=== PATIENT | female | born 1960 | race Caucasian/White ===

== ENCOUNTER 2021-04-04 15:10 | Outpatient (CLI) | payer OTHER, SELFPAY ==
--- NOTE | 2021-04-04 15:17 | MM_ITS ---
WS: [id number] BILATERAL DIGITAL SCREENING MAMMOGRAPHY WITH CAD CLINICAL INFORMATION: SCREENING HISTORY: Screening mammogram. No current complaints. COMPARISON: April 07, 2019 TECHNIQUE: Bilateral CC and MLO views. FINDINGS: Scattered fibroglandular densities bilaterally. No suspicious focal mass, asymmetry, calcifications, or architectural distortion. No evidence of malignancy. MM/[place] [id number] IMPRESSION: BI-RADS: 1-Negative FOLLOW UP: 1 Year Follow-up Recommend return to annual screening mammography.
== END 2021-04-04 15:11 | disposition home or self-care (01) ==
PROVIDERS: PCP Family Medicine; Visit Provider Family Medicine
DX: Z12.39 Encounter for other screening for malignant neoplasm of breast (principal)
CPT/HCPCS: 77067

== ENCOUNTER → 2021-10-24 15:27 | Outpatient (BNVA) | payer OTHER, SELFPAY | PROVIDERS: PCP Family Medicine; Referring Provider Family Medicine; Visit Provider Specialist | DX: M19.011 Primary osteoarthritis, right shoulder (principal); M25.511 Pain in right shoulder | CPT/HCPCS: 73030 ==

== ENCOUNTER 2022-02-01 09:16 | Outpatient (CLI) | payer OTHER, SELFPAY ==
--- NOTE | 2022-02-01 09:25 | MR_ITS ---
WS: [id number] MRI RIGHT SHOULDER NONCONTRAST TECHNIQUE: Sagittal T2, coronal T1, T2 and proton density imaging. Axial gradient PDE imaging. CLINICAL INFORMATION: R SHOULDER PAIN/TEAR OF ROTATOR CUFF COMPARISON: Radiograph October 24, 2021 FINDINGS: Moderate degenerative arthritis at the AC joint with edema. Marked narrowing of the subacromial space . Acromion abuts the humeral head. Subchondral cystic degenerative change involving the acromion and humeral head. Subchondral cystic change involving the glenoid. Mild edema at the AC joint. Complete t ear of the supraspinatus with retraction to the glenohumeral joint. Normal infraspinatus. Normal dru s minor. Subscapularis is intact. Biceps tendon somewhat diminutive but appears intact within the bicipital groove. Intrasubstance high -grade tear involving the intra-articular biceps tendon with T2 signal abnormality. Chronic degenerative fraying of the glenoid labrum. Advanced narrowing at the glenohumeral articulati on with hypertrophic changes. MR/MR shoulder RT wo con* [id number] IMPRESSION: 1. Advanced degenerative arthritis AC joint with edema and complete loss of th e subacromial space. 2. High-grade complete tear of the supraspinatus with retraction to the level of glenohumeral joint. 3. Rotator cuff is otherwise intact. 4. Calcific tendinitis involving the distal subscapularis tendon. 5. Tiny biceps tendon within the bicipital groove appears intact. High-grade i ntrasubstance biceps tendon tear with poorly visualized intra-articular biceps tendon. 6. Advanced narrowing of the glenohumeral articulation with fraying of the gle noid.
== END 2022-02-01 09:17 | disposition home or self-care (01) ==
LOC: RAD 09:17
PROVIDERS: PCP Family Medicine; Visit Provider Specialist
DX: M75.101 Unspecified rotator cuff tear or rupture of right shoulder, not specified as traumatic (principal); M19.011 Primary osteoarthritis, right shoulder; M75.31 Calcific tendinitis of right shoulder
CPT/HCPCS: 73221

== ENCOUNTER 2022-04-19 12:53 | Outpatient (CLI) | payer OTHER, SELFPAY ==
--- NOTE | 2022-04-19 13:07 | MM_ITS ---
WS: [id number] VIEWS: MLO and CC views both breasts. 3D digital tomosynthesis is also included in this exam. Comparison made with prior exam of 12/15/2010, 02/05/2015, 04/07/2019, 04/04/2021.. Findings: A new 6.5 x 4 mm nodule identified in the medial inferior right breast at mid depth. No suspicious ca lcification or architectural distortion. There are no new findings in the left breast. Magnification compression spot images of the right breast as well as regional ultrasound would be suggested for fur ther workup. Scattered fibroglandular densities MM/[place] [id number] Impression: BI-RADS: 0-Incomplete: Need additional imaging evaluation FOLLOW-UP: See Report This mammogram was also analyzed by the Computer Aided Detection System R2 Imag e Insurance Account Executive.
== END 2022-04-19 12:54 | disposition home or self-care (01) ==
PROVIDERS: PCP Family Medicine; Visit Provider Family Medicine
DX: Z12.31 Encounter for screening mammogram for malignant neoplasm of breast (principal)
CPT/HCPCS: 77063; 77067

== ENCOUNTER 2022-05-11 10:32 | Outpatient (CLI) | payer OTHER, SELFPAY ==
--- NOTE | 2022-05-11 10:41 | MM_ITS ---
WS: [id number] ADDITIONAL VIEWS RIGHT MAMMOGRAM WITH DIGITAL BREAST TOMOSYNTHESIS. RIGHT BREAST ULTRASOUND HISTORY: ABNORMAL MAMMO COMPARISON: 04/19/2020, 04/04/2021 and 04/07/2019 RIGHT MAMMOGRAM: Spot compression views and true ML with digital breast tomosynthesis and SM. 5 mm nodule persists in the posterior inferior RIGHT breast. This nodule is very difficult to visuali ze due to its posterior position and very small size. RIGHT BREAST ULTRASOUND 2-D and color Doppler imaging submitted. RIGHT breast nodule seen on mammography is not identified by ultrasound. MM/[place] [id number] IMPRESSION: BI-RADS: 3-Probably Benign FOLLOW UP: 6 Month Follow-up Recommend 6 month follow-up RIGHT breast. Ultrasound may be necessary also. Fav or benign lesion.
== END 2022-05-11 10:33 | disposition home or self-care (01) ==
PROVIDERS: PCP Family Medicine; Visit Provider Family Medicine
DX: R92.8 Other abnormal and inconclusive findings on diagnostic imaging of breast (principal)
CPT/HCPCS: 76642; 77061; G0279

== ENCOUNTER 2022-11-13 12:55 | Outpatient (CLI) | payer OTHER, SELFPAY ==
--- NOTE | 2022-11-13 13:02 | MM_ITS ---
WS: [id number] DIAGNOSTIC RIGHT DIGITAL TOMOSYNTHESIS MAMMOGRAPHY WITH CAD. HISTORY: ABNORMAL MAMMO, 6 month follow-up 5 mm nodule seen along the inferior medial RIGHT breast by mammography only. COMPARISON: 12/15/2010, 05/11/2000 2200 04/19/2022 Technique: CC, MLO and ML views. Spot compression views RIGHT CC and MLO. Breast composition: There are scattered areas of fibroglandular density. Asymmetry along the medial inferior RIGHT breast is reidentified measuring approximately 5 mm. No interval change. Benign in darlyn earance. No distortion. As this nodule was not visualized on the prior ultrasound, no ultrasound will be performed today. MM/[place] [id number] IMPRESSION: BI-RADS: 3-Probably Benign FOLLOW UP: 6 Month Follow-up Patient return in 6 months for annual mammogram. At that time at additional delmer ging of the RIGHT breast mass should be obtained. Ultrasound may be necessary i f this mass changes.
== END 2022-11-13 12:56 | disposition home or self-care (01) ==
PROVIDERS: PCP Family Medicine; Visit Provider Family Medicine
DX: R92.8 Other abnormal and inconclusive findings on diagnostic imaging of breast (principal)
CPT/HCPCS: 77061; G0279

== ENCOUNTER 2023-06-18 09:44 | Outpatient (CLI) | payer OTHER, SELFPAY ==
--- NOTE | 2023-06-18 09:51 | MM_ITS ---
WS: [id number] DIAGNOSTIC BILATERAL DIGITAL BREAST TOMOSYNTHESIS MAMMOGRAPHY WITH CAD HISTORY: ABNORMAL MAMMO RIGHT BREAST COMPARISON: 11/13/2022 and 05/11/2022 and 04/04/2021 TECHNIQUE: Bilateral craniocaudad, mediolateral oblique, and mediolateral views are submitted with to mosynthesis and SM. Computer aided detection utilized. Breast composition: There are scattered areas of fibroglandular density. The nodule in the inferior p osterior RIGHT breast appears to be more like a lymph node on today's examination. The otherwise the asymmetry central to the nipple is stable on multiple prior exams. Benign calcifications LEFT breast. IMPRESSION: MM/[place] [id number] BI-RADS: 2-Benign FOLLOW UP: 1 Year Follow-up
== END 2023-06-18 09:45 | disposition home or self-care (01) ==
LOC: RAD 09:44
PROVIDERS: PCP Family Medicine; Visit Provider Family Medicine
DX: R92.8 Other abnormal and inconclusive findings on diagnostic imaging of breast (principal); R92.1 Mammographic calcification found on diagnostic imaging of breast
CPT/HCPCS: 77062; G0279

== ENCOUNTER 2023-12-26 08:24 | Outpatient (CLI) | payer OTHER, SELFPAY ==
--- NOTE | 2023-12-26 08:30 | US_ITS ---
WS: [id number] Complete ABDOMINAL ULTRASOUND HISTORY: CALCULUS OF GALLBLADDER W/O CHOLECYSTITIS W/O OBSTRUCTION COMPARISON: 09/01/2015 Liver: 17.6 cm in length. Poorly visualized liver due to body habitus. Echotexture appears coarse but the entire liver is not imaged well. No bile duct dilatation. Normal portal vein. Portal Vein: Normal hepatopetal flow with monophasic waveform. Gallbladder: Normally distended with numerous stones. No wall thickening or pericholecystic fluid. Th ere are several stones ranging in size with the largest measuring up to 2.0 cm. CBD: 0.4 cm Pancreas: Completely obscured. Right kidney: 11.0 cm x 6.0 x 5.2 cm. Cortex:1.1 cm. Normal size and echogenicity. No hydronephrosis or mass. Left kidney: 10.0 cm x 4.7 cm x 5.5 cm. Cortex: 1.2 cm. Normal size and echogenicity. No hydronephrosis or mass. Spleen: 10.1 cm. Normal size and echogenicity. Subcapsular cyst measures 9 x 9 x 9 mm. Aorta and IVC: Unremarkable abdominal aorta and IVC. US/US abdomen complete* [id number] Impression: 1. Cholelithiasis without acute cholecystitis. Numerous stones in the gallblad kevin lumen. Stone burden has increased since 09/01/2015. 2. Quality of the ultrasound examination is compromised by body habitus. 3. Hepatic steatosis. The entire liver not well visualized. 4. No renal obstruction.
== END 2023-12-26 08:25 | disposition home or self-care (01) ==
LOC: RAD 08:24
PROVIDERS: PCP Family Medicine; Visit Provider Registered Nurse
DX: K80.20 Calculus of gallbladder without cholecystitis without obstruction (principal); R13.10 Dysphagia, unspecified; R10.10 Upper abdominal pain, unspecified; R68.81 Early satiety; K21.9 Gastro-esophageal reflux disease without esophagitis; D73.4 Cyst of spleen
CPT/HCPCS: 76700

== ENCOUNTER → 2024-01-21 11:37 | Outpatient (BNVA) | payer MEDICARE, OTHER, SELFPAY | PROVIDERS: PCP Family Medicine; Visit Provider Surgery | DX: K80.20 Calculus of gallbladder without cholecystitis without obstruction (principal); K21.9 Gastro-esophageal reflux disease without esophagitis | CPT/HCPCS: 99204 ==

== ENCOUNTER 2024-02-12 07:42 | Day surgery (SDC) | payer MEDICARE, OTHER, SELFPAY ==
--- OUTSIDE RECORDS SUMMARY | 2024-01-28 11:00 | XMS_ITS | Patient Health Record ---
Author Name Unknown Organization [facility] Address [address] [place] [address] Care Team Providers Care Remote Medical Coder Name Role Phone Pj Mujica Unavailable [phone] Reason For Referral No Information Medications Medication SIG (Take, Route, Frequency, Duration) Notes Start Date End Date Status Lisinopril 40 MG Oral Tablet Lisinopril 40 MG Oral Tablet 08/17/2011 Active Ibuprofen Ibuprofen 08/17/2011 Active Singulair 10 MG Take 1 tablet(s) by mouth each evening Oral for 30 Singulair 10mg Tablets 1 tab(s) po pm #30 tablet(s) 09/17/2003 Active Problems Problem Type SNOMED Code ICD Code Onset Dates Problem Status W/U Status Risk Notes Problem Allergic rhinitis caused by pollen (65657616) Allergic rhinitis, pollen-induce d (477.0) 09/17/2003 Problem resolved confirmed [id number] 1- Problem Central obesity (083712208) Central obesity (278.1) 10/08/2003 Problem resolved confirmed [id number] 1- Plan Of Treatment No Information Medical (General) History Surgical History Surgery Date(Month/Year) : X ; 1987;
[2024-02-12] VITALS (19 sets, daily range): BP systolic 113–157; BP diastolic 55–94; PULSE 52–87; RESP 17–25; TEMP 36.1–36.3; O2SAT 91–98; BMI 33.0
--- OUTSIDE RECORDS SUMMARY | 2024-02-12 07:44 | XMS_ITS | Patient Health Record ---
Author Name Unknown Organization [facility] Address [address] [place] [address] Care Team Providers Care Lead Principal Technical Architect Name Role Phone Pj Mujica Unavailable [phone] Reason For Referral No Information Medications Medication [...] Notes Problem Allergic rhinitis caused by pollen (77344380) Allergic rhinitis, pollen-induce d (477.0) 09/17/2003 Problem resolved confirmed [id number] 1- Problem Central obesity (542234143) Central obesity (278.1) 10/08/2003 Problem resolved confirmed Tio-47000 1- Plan Of Treatment No Information Medical (General) History Surgical History Surgery Date(Month/Year) : X ; 1987;
--- NOTE | 2024-02-12 08:15 | W.PM.OPSUD ---
Surgery/Procedure H&P Update DATE OF PROCEDURE: February 12, 2024 DATE H&P PERFORMED: 01/21/24 H&P UPDATE INFORMATION: I have reviewed H&P completed within last 30 days, I have examined patient prior to procedure and No changes to prior documentation PLANNED PROCEDURE: Operation Date: 02/12/24 09:20 Proposed Procedures p Laparoscopic Cholecystectomy 10947, K80.20(Not Applicable) - David Irby,
[2024-02-12 08:31] LABS: Glucose Point of Care 205 mg/dL (70-110)
--- NOTE | 2024-02-12 08:40 | ANES.PREANE2 ---
Pre-Anesthetic Assessment Height/Weight: Height 1.78 m Weight 104.326 kg Temp Pulse Resp BP Pulse Ox O2 Del Method 97.1 F L 87 18 157/94 97 Room Air 02/12/24 08:04 02/12/24 08:04 02/12/24 08:04 02/12/24 08:04 02/12/24 08:04 02/12/24 08:10 Operation Date: 02/12/24 09:20 Proposed Procedures p Laparoscopic Cholecystectomy 78454, K80.20(Not Applicable) - David Irby DO Familial anesthetic complications: None Was Beta Ghassan taken within 24 hours: N/A Was Clonidine taken within 24 hours: N/A Last intake: Intake Last Liquid Date 02/11/24 Last Liquid Time 19:30 Last Solid Date 02/11/24 Last Solid Time 19:30 Social No alcohol and No tobacco Exam alert, oriented x 3, clear to auscultation bilaterally and regular rate & rhythm Airway Mallampati: Class II Dentition: chipped and partials CV/HEM Hypertension GI Gastroesophageal Reflux Disease Metabolic Diabetes Mellitus Anesthetic Plan ASA status: 2 Anesthesia: General Risk of > 500 ml blood loss (7ml/kg in children): No Medications/Allergies Home Medications Medication Instructions Recorded Confirmed Last Taken Type diclofenac sodium 100 mg 100 mg PO BID 10/24/21 02/11/24 02/11/24 History tablet,extended release 24 hr glipizide 5 mg tablet 10 mg PO DAILY 10/24/21 02/11/24 02/11/24 History lisinopril 5 mg tablet 5 mg PO DAILY 10/24/21 02/11/24 02/11/24 History Allergies Allergy/AdvReac Type Severity Reaction Status Date / Time No Known Allergies Allergy Verified 02/11/24 12:02 [facility] Anesthesia Social History Smoking and tobacco/nicotine status: former use of tobacco/nicotine Data Anesthesia Cardiac Studies: No Data to Display
[2024-02-12] MEDS: ceFAZolin 2,000 mg SDV 2000 MG IVP (08:43)
[2024-02-12] MEDS: acetaminophen 1,000 MG/100 ML PIGGYBACK 400 MG IV (09:07)
[2024-02-12] MEDS: lidocaine-epi 2% PF 1:200,000 20 mL SDV 10 ML XX (09:12)
--- NOTE | 2024-02-12 09:50 | P.OP_ITS ---
Operative Report Date of procedure: February 12, 2024 Surgeon: David Irby DO Brief History: This is a very pleasant 64-year-old female who presented my office with abdominal pain. She was diagnosed with symptomatic cholelithiasis. Laparoscopic cholecystectomy is indicated. The risks and benefits were explained and documented. Procedure: Preoperative diagnosis: Symptomatic cholelithiasis Postoperative diagnosis: Same Procedure performed: Laparoscopic cholecystectomy Surgeon: Dr. David Irby DO Estimated blood loss: 5 mL Specimens: Gallbladder to pathology Complications: None apparent Description of procedure: Patient was wheeled into the operative room and placed on the OR table in a supine position. Abdomen was inspected prepped and draped in usual sterile fashion. Time-out was performed and all present were in agreement. A 15 blade scalp was used to make a stab incision in the left upper quadrant and intra- abdominal insufflation was achieved using a Veress needle. After localizing the tissue incisions were made and a 5 millimeter trocar was placed into the umbilicus as well as 2 in the right upper quadrant. A 12 millimeter trocar was placed in the epigastrium. Gallbladder was grasped and elevated. The gallbladder was very densely scarred to the stomach. This was taken down bluntly and sharply with electrocautery. The triangle of Calot was carefully dissected using blunt dissection and electrocautery until the triangle of Calot clearly identified. The cystic duct was clipped proximally and double clipped distally. The duct was then ligated proximally. The cystic artery was doubly clipped and ligated. The gallbladder was then removed from the liver bed using electrocautery. The gallbladder was removed from the abdomen using an Endo- Catch bag through the epigastric incision. The liver bed was inspected and no bleeding was seen. The abdomen was irrigated and suctioned. All ports removed. Skin was washed and dried. Incisions were closed with 4-0 Monocryl in a subcuticular interrupted fashion. Skin glue was applied. Patient tolerated the procedure well.
[2024-02-12] MEDS: fentaNYL 50 mcg/mL INJ 2mL IVP ×2 (09:56→10:06)
[2024-02-12] MEDS: HYDROmorphone 1 mg/mL INJ 1 mL 0.5 MG IVP ×2 (10:22→10:33)
[2024-02-12] MEDS: HYDROcodone-acetaminophen 7.5-325 mg Tablet 1 TAB PO (11:30)
[2024-02-12] MEDS: sodium chloride 0.9% 1,000 ML 30 ML IV (11:31)
--- NOTE | 2024-02-12 12:05 | ANE.PACU2 ---
Inpatient post-anesthesia follow up: Airway intact: Yes Vital signs: Temperature 97.3 F Pulse Rate 64 Respiratory Rate 17 Blood Pressure 148/88 Pulse Oximetry 92 Oxygen Delivery Me thod Room Air Oxygen Flow Rate 3 Fraction of Inspir ed Oxygen Hydration adequate: Yes Nausea and vomiting: No Pain level: 1 Mental status: Baseline
== END 2024-02-12 12:05 | disposition home or self-care (01) ==
PROVIDERS: PCP Family Medicine; Visit Provider Surgery
PROC: 0FT44ZZ Resection of Gallbladder, Percutaneous Endoscopic Approach (ICD-10-PCS; CPT 47562; principal; 2024-02-12 09:20)
DX: K80.10 Calculus of gallbladder with chronic cholecystitis without obstruction (principal); I10 Essential (primary) hypertension; K21.9 Gastro-esophageal reflux disease without esophagitis; E11.9 Type 2 diabetes mellitus without complications; Z87.891 Personal history of nicotine dependence
CPT/HCPCS: 47562; 36416; 82962; 88304; 88305; J0131; J0690; J1100; J1170; J2405; J2704; J2710; J3010; J3490; J7030

== ENCOUNTER 2024-02-12 22:17 | Emergency (ER) | payer MEDICARE, OTHER, SELFPAY ==
[2024-02-12 22:24] VITALS: BP 111/80; PULSE 137; RESP 20; TEMP 36.5; O2SAT 96
[2024-02-12] MEDS: ondansetron 2 mg/ML SDV 2 mL 8 MG IVP (23:03)
[2024-02-12] MEDS: HYDROmorphone 1 mg/mL INJ 1 mL IVP (23:04)
--- NOTE | 2024-02-12 23:14 | ED_ITS ---
HPI - General Adult 2 General: Chief complaint: General Medical Stated complaint: Post Surgery\Pain Time Seen by Provider: 02/12/24 22:51 History of Present Illness: 64-year-old woman who presents emergency room with right upper quadrant abdominal pain. She had her gallbladder out yesterday and was discharged this morning. Said the pain never got better. She is taking 7.5 hydrocodone's which have not helped. Related Data Home Medications Medication Instructions Recorded Confirmed diclofenac sodium 100 mg 100 mg PO BID 10/24/21 02/11/24 tablet,extended release 24 hr glipizide 5 mg tablet 10 mg PO DAILY 10/24/21 02/11/24 lisinopril 5 mg tablet 5 mg PO DAILY 10/24/21 02/11/24 Previous Rx's Medication Instructions Recorded docusate sodium 100 mg capsule 100 mg PO BID #14 caps 02/12/24 (Colace) hydrocodone 7.5 mg-acetaminophen 1 tab PO Q6H PRN pain #20 tabs 02/12/24 325 mg tablet polyethylene glycol 3350 17 17 g PO DAILY 7 days #119 grams 02/12/24 gram/dose oral powder (Miralax) oxycodone 5 mg tablet 5 mg PO Q8H PRN pain #20 tabs 02/13/24 Allergies Allergy/AdvReac Type Severity Reaction Status Date / Time No Known Allergies Allergy Verified 02/11/24 12:02 Review of Systems 2 Narrative: Constitutional symptoms: Negative except as documented in HPI. Skin symptoms: Negative except as documented in HPI. Eye symptoms: Negative except as documented in HPI. ENMT symptoms: Negative except as documented in HPI. Respiratory symptoms: Negative except as documented in HPI. Cardiovascular symptoms: Negative except as documented in HPI. Gastrointestinal symptoms: Negative except as documented in HPI. Genitourinary symptoms: Negative except as documented in HPI. Musculoskeletal symptoms: Negative except as documented in HPI. Neurologic symptoms: Negative except as documented in HPI. Psychiatric symptoms: Negative except as documented in HPI. Endocrine symptoms: Negative except as documented in HPI. PFSH ED 2 PFSH: Social History Smoking and tobacco/nicotine status: former use of tobacco/nicotine Physical Exam 2 Narrative: EXAM NARRATIVE: General: Alert, no acute distress. Skin: Warm, dry. Head: Normocephalic, atraumatic. Neck: Supple, trachea midline. Eye: Extraocular movements are intact. Ears, nose, mouth and throat: mucosa moist. Cardiovascular: Regular, Normal peripheral perfusion. Respiratory: Lungs are clear to auscultation, respirations are non-labored, breath sounds are equal, Symmetrical chest wall expansion. Gastrointestinal: Soft, severe right upper quadrant pain, Non distended Musculoskeletal: Normal ROM, no deformity. Neurological: Alert and oriented, No focal neurological deficit observed. Psychiatric: Cooperative, appropriate mood & affect. Course 2 Vital Signs: Vital signs: Vital Signs Temperature 97.7 F 02/12/24 22:24 Pulse Rate 127 H 02/13/24 01:14 Respiratory Rate 20 H 02/13/24 01:14 Blood Pressure 104/75 02/13/24 01:14 Pulse Oximetry 90 02/13/24 01:14 Oxygen Delivery Me thod Room Air 02/13/24 01:14 Oxygen Flow Rate 2 02/13/24 00:01 MDM - General Adult Medical Decision Making Lab Review: Laboratory results were reviewed and interpreted by myself the emergency room physician. Patient does have some leukocytosis with a white count of 20,000. Mean and creatinine are normal at seventeen 0.8. Liver enzymes are not elevated. His sugar is a bit high at 367. Some fluids are being given. CT of the abdomen pelvis with contrast: Postsurgical changes but no abscess. No other acute processes. This was reviewed and interpreted by myself the emergency room physician. I also reviewed the radiology report. I reviewed the patient's medical record. Reexamination: Patient says her pain is quite a bit improved. Patient remained stable. No increased work of breathing. No altered mental status. No focal motor deficits. Assessment and plan: Uncontrolled postop pain. Dehydration ?Dilaudid and oxycodone for home. Fluids. Zofran. - Discharged home - Discussed findings and plan with patient. Answered any questions. - All laboratory values were reviewed and interpreted personally by myself, the ER physician - All imaging was reviewed and interpreted personally by myself, the ER physician. - Evaluation and treatment of this problem were appropriate in the emergency setting Lab Data 02/12/24 23:12 02/12/24 23:12 Radiology Impressions Abdomen/Pelvis CT 02/12/24 23:55 IMPRESSION: 1. Postsurgical changes status post cholecystectomy with multiple tiny locules of air in the anterior upper abdomen and a small amount of free simple fluid in the abdomen and pelvis. 2. No abscess. Laboratory Results WBC 19.78 10^3/uL (3.29-11.43) H 02/12/24 23:12 RBC 5.69 10^6/uL (3.85-5.65) H 02/12/24 23:12 Hgb 16.20 g/dL (11.27-16.99) 02/12/24 23:12 Hct 49.6 % (36-47) H 02/12/24 23:12 MCV 87.2 fl (85-98) 02/12/24 23:12 MCH 28.5 pg (27-33) 02/12/24 23:12 MCHC 32.7 g/dL (30-55) 02/12/24 23:12 RDW 13.8 % (12.1-15.1) 02/12/24 23:12 Plt Count 434 10^3/cmm (157-399) H 02/12/24 23:12 MPV 11.1 fL (7.4-10.4) H 02/12/24 23:12 Neut % (Auto) 91.5 % 02/12/24 23:12 Lymph % (Auto) 3.2 % 02/12/24 23:12 Howard % (Auto) 4.7 % 02/12/24 23:12 Eos % (Auto) 0.0 % 02/12/24 23:12 Baso % (Auto) 0.2 % 02/12/24 23:12 Neut # (Auto) 18.11 10^3/uL (1.8-7.7) H 02/12/24 23:12 Lymph # (Auto) 0.6 10^3/uL (0.8-4.8) L 02/12/24 23:12 Howard # (Auto) 0.9 10^3/uL (0.2-0.9) 02/12/24 23:12 Eos # (Auto) 0.0 10^3/uL (0.0-0.8) 02/12/24 23:12 Baso # (Auto) 0.0 10^3/uL (0.0-0.1) 02/12/24 23:12 Nucleated RBC % (auto) 0 % 02/12/24 23:12 Nucleated RBCs # 0.0 /100WBC 02/12/24 23:12 Sodium 132 mmol/L (136-145) L 02/12/24 23:12 Potassium 4.9 mmol/L (3.5-5.1) 02/12/24 23:12 Chloride 96 mmol/L (98-107) L 02/12/24 23:12 Carbon Dioxide 17 mmol/L (22-29) L 02/12/24 23:12 Anion Gap 23.9 (5-19) H 02/12/24 23:12 BUN 17 mg/dL (8-23) 02/12/24 23:12 Creatinine 0.8 mg/dL (0.5-0.9) 02/12/24 23:12 GFR Calculation 72.0 mL/min (90-130) L 02/12/24 23:12 Glucose 367 mg/dL (65-115) H 02/12/24 23:12 Calculated Osmolality 290 mOsm/kg (285-295) 02/12/24 23:12 Calcium 9.6 mg/dL (8.5-10.5) 02/12/24 23:12 Total Bilirubin 0.7 mg/dL (0.15-1.2) 02/12/24 23:12 AST 93 U/L (0-32) H 02/12/24 23:12 ALT 151 U/L (0-33) H 02/12/24 23:12 Alkaline Phosphatase 96 U/L (35-105) 02/12/24 23:12 Total Protein 7.8 g/dL (6.6-8.7) 02/12/24 23:12 Albumin 4.4 g/dL (3.5-5.2) 02/12/24 23:12 Globulin 3.4 g/dL (1.3-4.6) 02/12/24 23:12 All radiology interpretation(s) finalized by discharge Discharge Plan Discharge Patient Disposition: Home Clinical Impression: Post-op pain Condition: Stable Prescriptions: New oxycodone 5 mg tablet 5 mg PO Q8H PRN (Reason: pain) Qty: 20 0RF No Action glipizide 5 mg tablet 10 mg PO DAILY Rx Instructions: takes 10mg in am and 5 mg in evening lisinopril 5 mg tablet 5 mg PO DAILY diclofenac sodium 100 mg tablet extended release 24 hr 100 mg PO BID hydrocodone-acetaminophen 7.5-325 mg tablet 1 tab PO Q6H PRN (Reason: pain) Qty: 20 0RF Colace 100 mg capsule 100 mg PO BID Qty: 14 0RF Miralax 17 gram/dose powder 17 g PO DAILY 7 Days Qty: 119 0RF Discharge Orders: Discharge ED (Routine); Ordered 02/13/24 Ordered By: Cristina Lcay Referrals: Karime Watts MD [Primary Care Provider] - Discharge Diet: Usual diet Discharge Activity: Increase activity as tolerated Patient Instructions: Opioid Safety, Pain Management Activity Restrictions/Additional Instructions: Thank you for choosing [facility] for your healthcare needs today. Please realize this is an emergency room and that we are providing you with a medical screening exam and this may not be complete and all inclusive of all the testing and or work up that you may need to determine your ailment or severity of your illness. You have been screened and evaluated and felt safe for discharge. Health conditions do change or evolve sometimes and as such it is important that you follow up with your Primary Doctor to be re checked, 3-5 days is a general good time frame for follow up. You are always welcome to return to the ED for re assessment if your symptoms are worsening or you have new concerns Coding Level of Care Code ED Metal Buildings Assembler for Edmund Romero
[2024-02-12 23:22] LABS: Basophils % 0.2 %; Hematocrit 49.6 % (36-47); Lymphocytes # 0.6 10^3/uL (0.8-4.8); Lymphocytes % 3.2 %; Mean Corpuscular HGB Conc 32.7 g/dL (30-55); Mean Corpuscular Hemoglobin 28.5 pg (27-33); Mean Corpuscular Volume 87.2 fl (85-98); Mean Platelet Volume 11.1 fL (7.4-10.4); Monocytes # 0.9 10^3/uL (0.2-0.9); Monocytes % 4.7 %; Neutrophils # 18.11 10^3/uL (1.8-7.7); Neutrophils % 91.5 %; Nucleated Red Blood Cells % 0 %; Platelet Count 434 10^3/cmm (157-399); Red Blood Count 5.69 10^6/uL (3.85-5.65); Red Cell Distribution Width 13.8 % (12.1-15.1); White Blood Count 19.78 10^3/uL (3.29-11.43)
[2024-02-12 23:33] VITALS: BP 140/99; PULSE 135; RESP 24; O2SAT 93
[2024-02-12 23:47] LABS: Alanine Aminotransferase 151 U/L (0-33); Albumin Level 4.4 g/dL (3.5-5.2); Alkaline Phosphatase 96 U/L (35-105); Anion Gap 23.9 (5-19); Aspartate Amino Transferase 93 U/L (0-32); Blood Urea Nitrogen 17 mg/dL (8-23); Calcium 9.6 mg/dL (8.5-10.5); Carbon Dioxide 17 mmol/L (22-29); Chloride 96 mmol/L (98-107); Creatinine Clr Calc Pharmacy 90.6702; Globulin 3.4 g/dL (1.3-4.6); Glucose 367 mg/dL (65-115); Osmolality Calculated 290 mOsm/kg (285-295); Potassium 4.9 mmol/L (3.5-5.1); Sodium 132 mmol/L (136-145); Total Bilirubin 0.7 mg/dL (0.15-1.2); Total Protein 7.8 g/dL (6.6-8.7)
--- NOTE | 2024-02-12 23:55 | CTR_ITS ---
PROCEDURE INFORMATION: Exam: CT Abdomen And Pelvis Without Contrast Exam date and time: 02/13/2024 12:15 AM Age: 64 years old Clinical indication: Abdominal tenderness; Prior surgery; Surgery date: Post-operative (0-2 days); Surgery type: Lap choley 02/12/2024; Additional info: Abdominal pain. , Stat post lap germaine TECHNIQUE: Imaging protocol: Computed tomography of the abdomen and pelvis without contrast. Radiation optimization: All CT scans at this facility use at least one of these dose optimization techniques: automated exposure control; mA and/or kV adjustment per patient size (includes targeted exams where dose is matched to clinical indication); or iterative reconstruction. COMPARISON: US abdomen complete* [id number] 12/26/2023 8:46 AM RADIATION DOSE METRICS: Total DLP (mGy-cm): 1052.17 FINDINGS: Lungs: Atelectatic changes in the lung bases. Liver: Normal. No mass. Gallbladder and biliary ducts: Postsurgical changes status post cholecystectomy with multiple tiny locules of air in the anterior upper abdomen and a small amount of free simple fluid in the abdomen and pelvis. Gallbladder is absent. Pancreas: Normal. No ductal dilation. Spleen: Normal. No splenomegaly. Adrenal glands: Normal. No mass. Kidneys and ureters: There is a nonobstructing 4 mm stone right kidney. No hydronephrosis or hydroureter. Stomach and bowel: Unremarkable. No obstruction. No mucosal thickening. Appendix: No evidence of appendicitis. Intraperitoneal space: Unremarkable. No free air. No significant fluid collection. Vasculature: Unremarkable. No abdominal aortic aneurysm. Lymph nodes: Unremarkable. No enlarged lymph nodes. Urinary bladder: Unremarkable as visualized. Reproductive: Unremarkable as visualized. Bones/joints: [id number] anterior wedging of the T12 vertebral body. Severe degenerative disc disease at L3-L4. Soft tissues: Unremarkable. Other findings: No abscess. CT/CT abdomen pelvis wo con [id number] IMPRESSION: 1. Postsurgical changes status post cholecystectomy with multiple tiny locules of air in the anterior upper abdomen and a small amount of free simple fluid in the abdomen and pelvis. 2. No abscess.
[2024-02-12] MEDS: sodium chloride 0.9% 1,000 ML 999 ML IV (23:59)
[2024-02-13 00:01] VITALS: BP 125/92; PULSE 134; RESP 24; O2SAT 92
[2024-02-13 00:39] VITALS: BP 117/82; PULSE 127; RESP 22; O2SAT 90
[2024-02-13] MEDS: HYDROmorphone 1 mg/mL INJ 1 mL 0.5 MG IVP (01:12)
[2024-02-13] MEDS: oxyCODONE 5 mg IR Tab/Cap PO ×2 (01:12)
[2024-02-13 01:14] VITALS: BP 104/75; PULSE 127; RESP 20; O2SAT 90
[2024-02-13 01:36] VITALS: BP 100/78; PULSE 113; PULSE 115; RESP 18; RESP 20; O2SAT 90
== END 2024-02-13 01:37 | disposition home or self-care (01) ==
PROVIDERS: Emergency Provider Emergency Medicine; PCP Family Medicine
DX: G89.18 Other acute postprocedural pain (principal); R10.11 Right upper quadrant pain; Z79.84 Long term (current) use of oral hypoglycemic drugs; Z87.891 Personal history of nicotine dependence
CPT/HCPCS: 74176; 80053; 85025; 96361; 96374; 96375; 96376; 99285; J1170; J2405; J7030

== ENCOUNTER 2024-02-13 10:02 | Inpatient (IN) | payer MEDICARE, OTHER, SELFPAY ==
[2024-02-13] VITALS (30 sets, daily range): BP systolic 66–145; BP diastolic 56–89; PULSE 105–160; RESP 18–36; TEMP 36.4–36.5; O2SAT 89–100; BMI 32.3
--- NOTE | 2024-02-13 10:09 | ECG_ITS ---
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
--- NOTE | 2024-02-13 10:15 | XR_ITS ---
WS: [id number] XR chest 1V portable [id number] REASON FOR EXAM: abd pain FINDINGS: Significant tortuosity and ectasia of the thoracic aorta with normal heart size. Lungs are hypoexpanded with elevation of the hemidiaphragms. There are areas of atelectasis in the lo wer lung bases. No acute findings of pneumonitis or pulmonary edema. Mild degenerative spondylosis in the thoracic spine. Complete rotator cuff tendon tear on the right. XR/XR chest 1V portable [id number] IMPRESSION: Hypoexpanded lungs with atelectasis in both lower lungs. No findings of acute pneumonitis or pulmonary edema.
--- NOTE | 2024-02-13 10:18 | CT_ITS ---
WS: [id number] CTA CHEST WITH ABDOMEN AND PELVIS TECHNIQUE: Noncontrast plus contrast enhanced CTA of the chest, abdomen, and pelvis with coronal and sagittal reformatted images and additional MIP Images. CLINICAL INFORMATION: sob/abd pain COMPARISON: None. DLP: 1778.12 mGy.cm (accession [id number]), 1274.93 mGy.cm (accession [id number]) All CT scans at [facility] use at least one of these dose optimization techniques: automated e xposure control; mA and/or kV adjustment per patient size (includes targeted exams where dose is matc hed to clinical indication); or iterative reconstruction. FINDINGS: Proximal main pulmonary arteries are normal. Normal segmental and subsegmental pulmonary arteries. No evidence of pulmonary embolus. Normal caliber thoracic aorta. Small bilateral pleural effusions with bibasilar atelectasis and partial consolidation worse on the RIGHT. Enteric tube has been retracted to the mid esophagus. Contrast administered into the stomach with good opacification of the distal es ophagus and stomach. No evidence of active contrast leak. Good distention of the stomach and proximal duodenum. No evidence of pooling contrast products outside of the bowel. Perihepatic and perisplenic fluid marci lar to previous. Diffuse fatty infiltration of the liver. Cholecystectomy. No significant fluid in th e cholecystectomy bed to indicate bile leak. Duodenal C-loop is normal in appearance. No pneumatosis or pneumobilia. No portal venous air. Normal renal parenchymal enhancement and hydronephrosis. Adrenal glands are normal. Normal sigmoid co giacomo. Celiac and SMA are patent. Portal vein and splenic vein are patent. Normal pancreatic parenchyma l enhancement. Colon is appears decompressed. Slight thickening and induration about the transverse c olon nonspecific but can be seen with colitis. Tiny amount of air in the adjacent transverse mesocolo n can be associated with ischemic bowel. Recommend clinical correlation and close interval follow-up for developing bowel ischemia or pneumatosis. No evidence of small or large bowel obstruction. CT/CT abdomen pelvis w con* [id number] IMPRESSION: 1. No evidence of pulmonary embolus. 2. Small bilateral pleural effusions with bibasilar atelectasis. 3. Enteric tube has been retracted to the mid esophagus. This could be advance d if desired. 4. No evidence of oral contrast leak outside the stomach or small bowel lumen. Normal duodenal C-loop. Normal cholecystectomy bed. 5. Stable moderate fluid in the pelvis some of which may represent blood clot products with slightly increased attenuation. 6. Mild thickening and induration of the transverse colon is nonspecific. Tiny amount of air in the transverse mesocolon can be seen with mesenteric ischemia but indeterminate. Recommend clinical correlation and close interval follow-up for developing pneumatosis. 7. A few pockets of layering air in the anterior abdomen likely postoperative. Notified Dr. Mahamed ALEXANDRA at 02/13/2024 3:48 PM.
[2024-02-13 10:27] LABS: Hematocrit 56.6 % (36-47); Mean Corpuscular HGB Conc 31.3 g/dL (30-55); Mean Corpuscular Hemoglobin 28.5 pg (27-33); Mean Platelet Volume 11.2 fL (7.4-10.4); Platelet Count 486 10^3/cmm (157-399); Red Blood Count 6.22 10^6/uL (3.85-5.65); Red Cell Distribution Width 14.4 % (12.1-15.1); White Blood Count 14.19 10^3/uL (3.29-11.43)
--- NOTE | 2024-02-13 10:29 | ED_ITS ---
HPI - Arrhythmia/Palpitations 2 General: Chief Complaint: Arrhythmia/Palpitations Stated Complaint: Sob, pain, darkening around eyes Time Seen by Provider: 02/13/24 10:10 Source: patient Mode of arrival: ambulatory Limitations: no limitations History of Present Illness: 64-year-old female who had gallbladder s urgery yesterday states she been having severe pain she is also been having shortness of breath since the surgery. Seen her last night did have an elevated white count CT showed postop changes but states that since she has been home she feels much worse. Denies any vomiting denies any fevers. Patient is ill-appearing here. Associated symptoms: Deny nausea or vomiting Related Data Home Medications Medication Instructions Recorded Confirmed diclofenac sodium 100 mg 100 mg PO BID 10/24/21 02/13/24 tablet,extended release 24 hr glipizide 5 mg tablet See Rx Instructions .Route .COMPLEX 10/24/21 02/13/24 lisinopril 5 mg tablet 5 mg PO DAILY 10/24/21 02/13/24 Previous Rx's Medication Instructions Recorded docusate sodium 100 mg capsule 100 mg PO BID #14 caps 02/12/24 (Colace) hydrocodone 7.5 mg-acetaminophen 1 tab PO Q6H PRN pain #20 tabs 02/12/24 325 mg tablet polyethylene glycol 3350 17 17 g PO DAILY 7 days #119 grams 02/12/24 gram/dose oral powder (Miralax) Allergies Allergy/AdvReac Type Severity Reaction Status Date / Time No Known Allergies Allergy Verified 02/11/24 12:02 Review of Systems 2 Const: Denies: fever(s), chills, body aches or change in appetite ENMT: Denies: throat pain or dental pain Card: Denies: chest pain Resp: Reports: dyspnea GI: Reports: abdominal pain; Denies: nausea, vomiting or diarrhea : Denies: dysuria Musc: Denies: neck pain or back pain Skin/Breast: Denies: rash Neuro: Denies: headache(s) PFSH ED 2 PFSH: Surgical History (Updated 02/13/24 @ 15:21 by David Irby DO) Status post laparoscopic cholecystectomy Social History Smoking and tobacco/nicotine status: former use of tobacco/nicotine Physical Exam 2 Const: COMMON NORMALS: no acute distress and patient oriented x3 GENERAL APPEARANCE: in distress and ill appearing HENMT: COMMON NORMALS: normocephalic and atraumatic HEAD & SCALP: n ormocephalic and atraumatic Neck/C-Spine: COMMON NORMALS: full ROM and supple Chest: COMMONS NORMALS: normal inspection of the chest Resp: COMMON NORMALS: normal respiratory effort, No retractions, No use of accessory muscles and clear to auscultation bilaterally AUSCULTATION: clear to auscultation bilaterally Cardio: RATE: tachycardic RHYTHM: abnormal rhythm irregularly irregular GI: COMMON NORMALS: no masses OTHER: Incisions are clean dry and intact she has diffuse abdominal tenderness Extremity: COMMON NORMALS: normal to inspection and full ROM Neuro: COMMON NORMALS: patient oriented x3, moves all extremities and no focal motor deficits Psych: COMMON NORMALS: mental status grossly normal, Normal thought process present and cooperative THOUGHT PROCESS: Normal thought process present Skin: COMMON NORMALS: no rashes or lesions noted and no wounds GENERAL SKIN EXAM: no rashes or lesions noted Procedures Central Line Placement Right IJ: Time Out Performed: Yes Patient Placed on Monitor/Pulse Ox: Yes MD Prep: mask, gown and gloves Central Line Prep: Povidone-Iodine 1% Local Anesthetic: lidocaine 1% Amount of anesthesia used (mL): 4 Ultrasound Used for Placement: Yes Central Line Lumen Inserted: triple Post Procedure: sutured in place, good blood return and all ports aspirated, flushed, capped Post Procedure X-Ray: tip of catheter in good position Patient Tolerated Procedure: well Complications: none Course 2 Vital Signs: Vital signs: Vital Signs Temperature 97.5 F L 02/13/24 10:13 Pulse Rate 140 H 02/13/24 15:00 Respiratory Rate 32 H 02/13/24 15:00 Blood Pressure 106/73 02/13/24 15:00 Pulse Oximetry 90 02/13/24 15:00 Oxygen Delivery Me thod Room Air 02/13/24 10:13 MDM - Arrhythmia/Palpitations Medical Decision Making Patient presents with abdominal pain patient is hypotensive tachycardic here she did have elevated lactate consistent with a septic shock. Did give her sepsis fluid bolus for her ideal body weight. Is given antibiotic patient had to be started on pressors with a central line patient been seen in the ER by her surgeon Dr. Irby who is taking patient to the OR for exploration. Medical Records I reviewed the patient's medical records. Lab Data I reviewed the patient's lab results. 02/13/24 10:19 02/13/24 10:19 Radiology Impressions Chest X-Ray 02/13/24 13:15 IMPRESSION: Life support lines as above. Laboratory Results WBC 14.19 10^3/uL (3.29-11.43) H 02/13/24 10:19 RBC 6.22 10^6/uL (3.85-5.65) H 02/13/24 10:19 Hgb 17.70 g/dL (11.27-16.99) H 02/13/24 10:19 Hct 56.6 % (36-47) H 02/13/24 10:19 MCV 91.0 fl (85-98) 02/13/24 10:19 MCH 28.5 pg (27-33) 02/13/24 10:19 MCHC 31.3 g/dL (30-55) 02/13/24 10:19 RDW 14.4 % (12.1-15.1) 02/13/24 10:19 Plt Count 486 10^3/cmm (157-399) H 02/13/24 10:19 MPV 11.2 fL (7.4-10.4) H 02/13/24 10:19 Lymph % (Auto) Not Reportable 02/13/24 10:19 [place] % (Auto) Not Reportable 02/13/24 10:19 Lymph # (Auto) Not Reportable 02/13/24 10:19 [place] # (Auto) Not Reportable 02/13/24 10:19 Total Counted 100 (0-100) 02/13/24 10:19 Atypical Lymphs % 1.0 % (0-5) 02/13/24 10:19 Absolute Neutrophils 10.6 10^3/cmm (1.4-6.5) H 02/13/24 10:19 Segmented Neutrophils 54 % 02/13/24 10:19 Abs Segm Neuts (Man) 7.7 10/cmm (1.6-7.1) H 02/13/24 10:19 Band Neutrophils 21.0 % 02/13/24 10:19 Abs Band Neuts (Man) 3.0 10^3/cmm (0.0-1.2) H 02/13/24 10:19 Absolute Lymphocytes 2.3 10^3/cmm (1.2-3.4) 02/13/24 10:19 Lymphocytes (Manual) 15 % 02/13/24 10:19 Monocytes (Manual) 1.0 % 02/13/24 10:19 Absolute Monocytes 0.1 10^3/cmm (0.1-0.6) 02/13/24 10:19 Eosinophils (Manual) 0 % 02/13/24 10:19 Absolute Eosinophils 0.0 10^3/cmm (0.0-0.7) 02/13/24 10:19 Basophils (Manual) 0.0 % 02/13/24 10:19 Absolute Basophils 0.0 10^3/cmm (0.0-0.2) 02/13/24 10:19 Metamyelocytes 7.0 % 02/13/24 10:19 Myelocytes 1.0 % 02/13/24 10:19 Smudge Cells Trace 02/13/24 10:19 Platelet Estimate Increased (Normal) H 02/13/24 10:19 Giant Platelets Trace 02/13/24 10:19 D-Dimer 7.48 ug/mLFEU (0-0.59) H 02/13/24 10:19 Specimen Type Arterial 02/13/24 12:16 Sample Site Radial, right 02/13/24 12:16 ABG pH 7.26 (7.35-7.45) L 02/13/24 12:16 ABG pCO2 29.5 mmHg (35-45) L 02/13/24 12:16 ABG pO2 60.5 mmHg (80.0-100.0) L 02/13/24 12:16 ABG PO2/FiO2 Ratio 216 02/13/24 12:16 ABG HCO3 13.1 mmol/L (22-26) L 02/13/24 12:16 ABG Base Excess -12.5 mmol/L (-2.0-2.0) L 02/13/24 12:16 [place] Test Pos 02/13/24 12:16 Hematocrit 48.1 % (37-47) H 02/13/24 12:16 O2 Delivery Device Nc 02/13/24 12:16 O2 Liters/Min 2.0 % 02/13/24 12:16 FiO2 28.0 % 02/13/24 12:16 Marking Clerk ID Nasimro 02/13/24 12:16 Sodium 137 mmol/L (136-145) 02/13/24 10:19 Potassium 4.5 mmol/L (3.5-5.1) 02/13/24 10:19 Chloride 98 mmol/L (98-107) 02/13/24 10:19 Carbon Dioxide 13 mmol/L (22-29) L 02/13/24 10:19 Anion Gap 30.5 (5-19) H 02/13/24 10:19 BUN 29 mg/dL (8-23) H 02/13/24 10:19 Creatinine 2.1 mg/dL (0.5-0.9) H 02/13/24 10:19 GFR Calculation 23.6 mL/min (90-130) L 02/13/24 10:19 Glucose 353 mg/dL (65-115) H 02/13/24 10:19 Calculated Osmolality 304 mOsm/kg (285-295) H 02/13/24 10:19 Lactic Acid 10.6 mmol/L (0.5-2.2) H* 02/13/24 10:19 Calcium 9.6 mg/dL (8.5-10.5) 02/13/24 10:19 Total Bilirubin 0.8 mg/dL (0.15-1.2) 02/13/24 10:19 AST 54 U/L (0-32) H 02/13/24 10:19 ALT 98 U/L (0-33) H 02/13/24 10:19 Alkaline Phosphatase 91 U/L (35-105) 02/13/24 10:19 Troponin T Baseline 49 ng/L (0-10) H 02/13/24 10:19 NT-Pro-B Natriuret Pep 2031 pg/mL (0-125) H 02/13/24 10:19 Total Protein 7.5 g/dL (6.6-8.7) 02/13/24 10:19 Albumin 4.0 g/dL (3.5-5.2) 02/13/24 10:19 Globulin 3.5 g/dL (1.3-4.6) 02/13/24 10:19 Lipase 294 U/L (13-60) H 02/13/24 10:19 All radiology interpretation(s) finalized by discharge EKG Data EKG 1: I personally reviewed and interpreted this EKG as follows: EKG interpretation date: 02/13/24 EKG interpretation time: 10:09 Interpretation: atrial flutter hr [address] elevation qrs 85 qtc 362 Other EKG comments: Chest X-Ray 02/13/24 13:15 IMPRESSION: Life support lines as above. Critical Care Time 2 Critical Care Time: Critical Care Time: Yes Total Critical Care Time: 60 Attestation: The high probability of a clinically significant, sudden or life threatening deterioration of the patient's gi system(s) required my full and direct attention, intervention and personal management. The critical care time is as shown. This time is in addition to time spent performing any reported procedures but includes the following: [x] Data and vital sign review and interpretation [x] Patient assessment, examination and intervention [x] Documentation [x] Medication orders and management Discharge Plan Discharge Patient Disposition: Admitted As Inpatient Clinical Impression: Abdominal pain, Shock Condition: Stable Coding Level of Care Code ED Pneumatic Tool Operator for Edmund Romero
[2024-02-13 10:41] LABS: Alanine Aminotransferase 98 U/L (0-33); Alkaline Phosphatase 91 U/L (35-105); Anion Gap 30.5 (5-19); Aspartate Amino Transferase 54 U/L (0-32); Blood Urea Nitrogen 29 mg/dL (8-23); Calcium 9.6 mg/dL (8.5-10.5); Carbon Dioxide 13 mmol/L (22-29); Chloride 98 mmol/L (98-107); Globulin 3.5 g/dL (1.3-4.6); Glomerular Filtration Rate 23.6 mL/min (90-130); Glucose 353 mg/dL (65-115); Lipase 294 U/L (13-60); Osmolality Calculated 304 mOsm/kg (285-295); Potassium 4.5 mmol/L (3.5-5.1); Sodium 137 mmol/L (136-145); Total Bilirubin 0.8 mg/dL (0.15-1.2); Total Protein 7.5 g/dL (6.6-8.7)
[2024-02-13 10:44] LABS: Lactic Sepsis W/Reflex 10.6 mmol/L (0.5-2.2)
[2024-02-13] MEDS: ondansetron 2 mg/ML SDV 2 mL 4 MG IVP (10:46)
[2024-02-13] MEDS: HYDROmorphone 1 mg/mL INJ 1 mL IVP (10:46)
[2024-02-13] MEDS: sodium chloride 0.9% 1,000 ML 999 ML IV ×2 (10:48→10:49)
[2024-02-13] MEDS: piperacillin-tazobactam 3.375 GM in sodium chloride 0.9% (plus) 50 ML IV ×2 (11:00→21:26)
[2024-02-13 11:14] LABS: Slide Review Slide Review Perform
[2024-02-13 11:15] LABS: Absolute Neutrophil 10.6 10^3/cmm (1.4-6.5); Absolute Segmented Neutrophil 7.7 10/cmm (1.6-7.1); Eosinophils 0 %; Giant Platelets Trace; Lymphocytes 15 %; Lymphocytes Absolute 2.3 10^3/cmm (1.2-3.4); Monocytes Absolute 0.1 10^3/cmm (0.1-0.6); Platelet Estimate Increased (Normal); Segmented Neutrophils 54 %; Total Cells Counted 100 (0-100)
[2024-02-13 11:16] LABS: Smudge Cells Trace
[2024-02-13] MEDS: iohexol 350 mg/mL 500 mL Btl (per mL) IV ×2 (11:40→14:42)
--- NOTE | 2024-02-13 11:40 | XRR_ITS ---
PROCEDURE INFORMATION: Exam: XR Chest Exam date and time: 02/13/2024 12:07 PM Age: 64 years old Clinical indication: Device placement; Ng tube TECHNIQUE: Imaging protocol: Radiologic exam of the chest. Views: 1 view. COMPARISON: CR XR chest 1V portable [id number] 02/13/2024 10:24 AM FINDINGS: Tubes, catheters and devices: Gastric tube terminates in the stomach. Lungs: Hypoventilatory changes in each lung base. Pleural spaces: Unremarkable. No pleural effusion. No pneumothorax. Heart/Mediastinum: See Vasculature finding. Vasculature: Borderline cardiomegaly and uncoiling of the thoracic aorta each accentuated by the AP positioning. Bones/joints: Unremarkable. XR/XR chest 1V portable [id number] IMPRESSION: No acute findings.
[2024-02-13] MEDS: iohexol 350 mg/mL 500 mL Btl (per mL) PO ×2 (11:41→14:43)
[2024-02-13] MEDS: sodium chloride 0.9% 500 ML 999 ML IV (11:45)
[2024-02-13 12:09] LABS: Reflex Lactate Order REFLEX LACTIC ORDERD
[2024-02-13 12:28] LABS: ABG PCO2 29.5 mmHg (35-45); ABG PH Result 7.26 (7.35-7.45); Arterial Blood Gas Hematocrit 48.1 % (37-47); Base Excess ABG -12.5 mmol/L (-2.0-2.0); Blood Gas Allen Test Pos; Blood Gas Sample Type Arterial; HCO3 ABG 13.1 mmol/L (22-26); PO2 ABG 60.5 mmHg (80.0-100.0)
[2024-02-13 12:29] LABS: Blood Gas Operator Identificat MONRO; Blood Gas Sample Site Radial, right; Oxygen Device NC; PO2 FiO2 Ratio Arterial Blood 216
[2024-02-13 12:43] LABS: D Dimer 7.48 ug/mLFEU (0-0.59)
[2024-02-13 12:53] LABS: NT Pro B Type Natriuretic Pept 2031 pg/mL (0-125)
[2024-02-13] MEDS: norepinephrine 4 MG/250 ML BAG 30 MG IV (13:02)
--- NOTE | 2024-02-13 13:15 | XRR_ITS ---
PROCEDURE INFORMATION: Exam: XR Chest Exam date and time: 02/13/2024 1:19 PM Age: 64 years old Clinical indication: Device placement; Other: Central line TECHNIQUE: Imaging protocol: Radiologic exam of the chest. Views: 1 view. COMPARISON: CR XR chest 1V portable [id number] 02/13/2024 12:07 PM FINDINGS: Tubes, catheters and devices: Right IJ catheter terminates near the atrial caval junction, probably in the right atrium. The gastric tube terminates in the upper abdomen, the side hole is above the expected location of the EG junction. Lungs: Bibasilar atelectasis. Pleural spaces: Unremarkable. No pleural effusion. No pneumothorax. Heart/Mediastinum: Unremarkable. No cardiomegaly. Bones/joints: Unremarkable. XR/XR chest 1V portable [id number] IMPRESSION: Life support lines as above.
--- NOTE | 2024-02-13 13:15 | CT_ITS ---
WS: [id number] CTA CHEST WITH ABDOMEN AND PELVIS TECHNIQUE: Noncontrast plus contrast enhanced CTA of the chest, abdomen, and pelvis with coronal and sagittal reformatted images and additional MIP Images. CLINICAL INFORMATION: sob/abd pain COMPARISON: None. DLP: 1778.12 mGy.cm (accession [id number]), 1274.93 mGy.cm (accession [id number]) All CT scans at [facility] use at least one of these dose optimization techniques: automated e xposure control; mA and/or kV adjustment per patient size (includes targeted exams where dose is matc hed to clinical indication); or iterative reconstruction. FINDINGS: Proximal main pulmonary arteries are normal. Normal segmental and subsegmental pulmonary arteries. No evidence of pulmonary embolus. Normal caliber thoracic aorta. Small bilateral pleural effusions with bibasilar atelectasis and partial consolidation worse on the RIGHT. Enteric tube has been retracted to the mid esophagus. Contrast administered into the stomach with good opacification of the distal es ophagus and stomach. No evidence of active contrast leak. Good distention of the stomach and proximal duodenum. No evidence of pooling contrast products outside of the bowel. Perihepatic and perisplenic fluid marci lar to previous. Diffuse fatty infiltration of the liver. Cholecystectomy. No significant fluid in th e cholecystectomy bed to indicate bile leak. Duodenal C-loop is normal in appearance. No pneumatosis or pneumobilia. No portal venous air. Normal renal parenchymal enhancement and hydronephrosis. Adrenal glands are normal. Normal sigmoid co giacomo. Celiac and SMA are patent. Portal vein and splenic vein are patent. Normal pancreatic parenchyma l enhancement. Colon is appears decompressed. Slight thickening and induration about the transverse c olon nonspecific but can be seen with colitis. Tiny amount of air in the adjacent transverse mesocolo n can be associated with ischemic bowel. Recommend clinical correlation and close interval follow-up for developing bowel ischemia or pneumatosis. No evidence of small or large bowel obstruction. CT/CT angio chest w abd pel w con IMPRESSION: 1. No evidence of pulmonary embolus. 2. Small bilateral pleural effusions with bibasilar atelectasis. 3. Enteric tube has been retracted to the mid esophagus. This could be advance d if desired. 4. No evidence of oral contrast leak outside the stomach or small bowel lumen. Normal duodenal C-loop. Normal cholecystectomy bed. 5. Stable moderate fluid in the pelvis some of which may represent blood clot products with slightly increased attenuation. 6. Mild thickening and induration of the transverse colon is nonspecific. Tiny amount of air in the transverse mesocolon can be seen with mesenteric ischemia but indeterminate. Recommend clinical correlation and close interval follow-up for developing pneumatosis. 7. A few pockets of layering air in the anterior abdomen likely postoperative. Notified Dr. Mahamed ALEXANDRA at 02/13/2024 3:48 PM.
--- NOTE | 2024-02-13 13:28 | ECG_ITS ---
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
[2024-02-13 13:54] LABS: Troponin(5th) Baseline 49 ng/L (0-10)
--- NOTE | 2024-02-13 14:17 | P.ANESUD_ITS ---
Pre-Anesthetic Update Pre-Anesthetic Assessment: Date of Surgery/Procedure: 02/13/24 Proposed Procedure: Operation Date: 02/13/24 15:00 Proposed Procedures p Laparoscopic Left Hemicolectomy(Not Applicable) - David Irby, DO Any changes to Pre-Anesthetic Assessment?: Yes Changes from Pre- Anesthetic Assessment: setpic w/ metabolic acidosis Last Intake: NG tube in place Labs Last 48hrs: Short CBC 02/13/24 Range/Units 10:19 WBC 14.19 H (3.29-11.43) 10^ 3/uL Hgb 17.70 H (11.27-16.99) g/ dL Hct 56.6 H (36-47) % MCV 91.0 (85-98) fl Plt Count 486 H (157-399) 10^3/c mm BMP 02/13/24 10:19 Sodium 137 Potassium 4.5 Chloride 98 Carbon Dioxide 13 L BUN 29 H Creatinine 2.1 H Glucose 353 H Calcium 9.6 Cardiac Enzymes 02/13/24 Range/Units 10:19 Troponin T Baselin e 49 H (0-10) ng/L NT-Pro-B Natriuret Pep 2031 H (0-125) pg/mL Liver Function 02/13/24 Range/Units 10:19 Total Bilirubin 0.8 (0.15-1.2) mg/dL AST 54 H (0-32) U/L ALT 98 H (0-33) U/L Alkaline Phosphata se 91 (35-105) U/L Albumin 4.0 (3.5-5.2) g/dL Coags 02/13/24 10:19 D-Dimer 7.48 H ABG 02/13/24 12:16 Specimen Type Arterial Sample Site Radial, right ABG pH 7.26 L ABG pCO2 29.5 L ABG pO2 60.5 L ABG PO2/FiO2 Ratio 216 ABG HCO3 13.1 L ABG Base Excess -12.5 L O2 Delivery Device Nc O2 Liters/Min 2.0 FiO2 28.0 Vitals: Temperature 97.5 F L 02/13/24 10:13 Temperature Source Oral 02/13/24 10:13 Pulse Rate 146 H 02/13/24 13:45 Pulse Rhythm Regular 02/13/24 10:13 Respiratory Rate 19 H 02/13/24 13:45 Respiratory Effort Spontaneous 02/13/24 10:13 Respiratory Depth Normal 02/13/24 10:13 Blood Pressure 109/80 02/13/24 13:45 Blood Pressure Tamika n 89 02/13/24 13:45 Blood Pressure Pos ition Sitting 02/13/24 13:00 Pulse Oximetry 92 02/13/24 13:45 Oxygen Delivery Me thod Room Air 02/13/24 10:13 Sepsis Recent Feve r Within 48 Hours No 02/13/24 13:00 Sepsis Action Take n by Nursing MD Previously Not ified 02/13/24 13:15 Exam: Pre-Anes Outpt Exam: alert, oriented x 3, clear to auscultation bilaterally and regular rate & rhythm (tachy) Additional Exam Findings (including area of procedure): Levo gtt 8 mcg/min Cardiac Studies: No Data to Display
[2024-02-13] MEDS: sodium chloride 0.9% 1,000 ML 30 ML IV (15:16)
--- NOTE | 2024-02-13 15:17 | P.HP_ITS ---
Providers/Chief Complaint 2 Primary Care Provider: Karime Watts MD Chief Complaint: Sob, pain, darkening around eyes History of Present Illness Isabel Lazo is a 64 year old female who underwent a laparoscopic cholecystectomy yesterday. After she went home she started developing some abdominal pain and overall just not feeling well. She presented to the ER and was found to be in shock with some lower abdominal pain. She is somewhat lethargic. HPI and review of systems are limited secondary to this. Her upper abdomen over operative site is appropriately tender but she does have some lower abdominal peritonitis. We performed multiple CTs of the abdomen and a CTA of the pelvis. No definitive pathology is seen in the abdomen other than postsurgical changes. Review of Systems 2 General: Reports: ROS unobtainable due to medical condition Medications/Allergies Home Medications Medication Instructions Recorded Confirmed Last Taken Type diclofenac sodium 100 mg 100 mg PO BID 10/24/21 02/13/24 02/13/24 History tablet,extended release 24 hr glipizide 5 mg tablet See Rx Instructions .Route .COMPLEX 10/24/21 02/13/24 02/13/24 History lisinopril 5 mg tablet 5 mg PO DAILY 10/24/21 02/13/24 02/13/24 History docusate sodium 100 mg capsule 100 mg PO BID #14 caps 02/12/24 02/13/24 02/13/24 Rx (Colace) hydrocodone 7.5 mg-acetaminophen 1 tab PO Q6H PRN pain #20 tabs 02/12/24 02/13/24 02/12/24 Rx 325 mg tablet polyethylene glycol 3350 17 17 g PO DAILY 7 days #119 grams 02/12/24 02/13/24 Unknown Rx gram/dose oral powder (Miralax) Allergies Allergy/AdvReac Type Severity Reaction Status Date / Time No Known Allergies Allergy Verified 02/11/24 12:02 PFSH Acute 2 PFSH: Surgical History (Updated 02/13/24 @ 15:21 by David Irby DO) Status post laparoscopic cholecystectomy Social History Smoking and tobacco/nicotine status: former use of tobacco/nicotine Vitals/I&O/Wt Last Vital Signs Temp 97.5 F L 02/13/24 10:13 Pulse 140 H 02/13/24 15:00 Resp 32 H 02/13/24 15:00 BP 106/73 02/13/24 15:00 Pulse Ox 90 02/13/24 15:00 O2 Del Method Room Air 02/13/24 10:13 02/13/24 02/13/24 02/13/24 06:59 14:59 22:59 Intake Total 66.65 / 66.65 Balance 66.65 / 66.65 Weight last 48 hrs Weight 225 lb Physical Exam 2 Narrative: General : Patient is well developed , no acute distress, oriented x3 Head : Normal cephalic, a-traumatic. Ears : Pinnae and external canal are normal. Hearing is normal. Eyes : PERRLA, Sclera and injection are normal. No conjunctival discharge. Nose : Mucous membranes are without erythema. Throat : buccal mucosa is normal, gums are without significant recession or hypertrophy. Lungs : Equal chest rise bilaterally, no use of accessory muscles, trachea is midline. Cor : Rate and rhythm are normal. Abdomen : Soft, mildly distended, lower abdominal tenderness with some guarding but no rebound Extremities : No edema, no cyanosis or clubbing, dorsalis pedis pulses are present bilaterally, non-tender to palpation of calves. Upper extremities are normal bilaterally. Back : non-tender to palpation, no CVA tenderness. Neuro : CN II - XII intact, Upper and lower extremities have equal and full strength Data 02/13/24 10:19 02/13/24 10:19 A&P Assessment and plan (1) Status post laparoscopic cholecystectomy: (2) Shock: (3) Abdominal pain: Plan I went over her CTs with radiology. They cannot identify any discrete abdominal pathology other than some fluid in her pelvis and some postsurgical pneumoperitoneum. There is no bowel inflammation or pathology seen in the gallbladder fossa. Go to take her for an emergent diagnostic laparoscopy, possible exploratory laparotomy. The risks and benefits of the procedure, including but not limited to, bleeding, infection, scar, numbness, pain, need to convert to an open procedure, possible need for bowel resection or additional surgery, or explained to the patient and her . They are understand the risks and wished to proceed Attestations 2 Medical Necessity Statement*: Patient will need to stay at least 1 night after the procedure and perhaps longer depending on what I find on diagnostic laparoscopy. Exact etiology of her illness is not yet identified Coding Level of Care Code 22390 Diagnoses Status post laparoscopic cholecystectomy Z90.49 Shock R57.9 Abdominal pain R10.9
[2024-02-13] MEDS: lidocaine-epi 2% PF 1:200,000 20 mL SDV XX (15:48)
--- NOTE | 2024-02-13 16:02 | NMR_ITS ---
PROCEDURE INFORMATION: Exam: NM Hepatobiliary Including Gallbladder When Present Exam date and time: 02/13/2024 4:02 PM Age: 64 years old Clinical indication: Ruq pain; Prior surgery; Surgery date: Post-operative (0-2 days); Patient HX: S/P cholecystectomy x1 day, abdominal pain, SOB, shock. Patient on a ventilator; Additional info: Sepsis TECHNIQUE: Imaging protocol: Hepatobiliary system imaging including the gallbladder when present. Projections: Frontal abdomen. Radiopharmaceutical: 7.5 mCI Tc-99m Mebrofenin (Choletec, Bromotriethyl-PEEWEE), IV. Time of imaging post radiopharmaceutical administration: 60 minutes following radiopharmaceutical. COMPARISON: 1. CT angio chest w abd pel w con 02/13/2024 2:[address] abdomen pelvis wo con [id number] 02/13/2024 12:15 AM FINDINGS: Tubes, catheters and devices: The radiotracer is filling catheter which is extending from the area of the gallbladder fossa. Liver: There is possibly a small amount of radiotracer within the intraperitoneal space at the inferior margin of the right hepatic lobe which is starting to be visualized on the 50 minute image. Gallbladder: Absent. Biliary ducts: Clearly visualized. There is a mild delay in the hepatic tip biliary transit time, but the common bile duct is visualized on the 20 minute image excreting into the duodenal C-loop. Stomach and bowel: Unremarkable. No evidence of significant enterogastric reflux. Radiotracer activity is seen in the small bowel. Mild delay in biliary to bowel transit time. NM/NM hepatobiliary wo phar [id number] IMPRESSION: 1. There is radiotracer visible within catheter tubing which appears to be extending from the gallbladder fossa region. There is no correlate catheter visualized on comparison CT scan studies. Was there interval surgical or percutaneous drainage catheter placement? No additional history is provided. 2. The radiotracer within the presumed catheter may represent a bile leak, as there also appears to be some abnormal radiotracer accumulation under the inferior margin of the right hepatic lobe.
[2024-02-13 16:14] LABS: ABG PCO2 42.2 mmHg (35-45); Alveolar-Arterial Oxygen Gradi 65.6 mmHg (5-10); Arterial Blood Gas Hematocrit 44.9 % (37-47); Base Excess ABG -14.6 mmol/L (-2.0-2.0); Blood Gas Operator Identificat glc; Blood Gas Sample Site Brachial, left; Blood Gas Sample Type Arterial; Carboxyhemoglobin < 0.0 %THgb (0.4-20.1); HCO3 ABG 14.1 mmol/L (22-26); Ionized Calcium Level - ABG 1.1 mmol/L (1.1-1.4); Methemoglobin 0.5 % (0.4-1.5); Oxygen Device VENT; Oxygen Saturation ABG 96.5; PO2 FiO2 Ratio Arterial Blood 152; Potassium Level - ABG 4.9 mmol/L (3.5-5.0); Total Hemoglobin 14.6 g/dL (12-16)
[2024-02-13 16:28] LABS: Lactic Acid level (Lactate) 5.2 mmol/L (0.5-2.2)
--- NOTE | 2024-02-13 16:38 | SUR.PREOP ---
Addendum entered by Stacy Swanson RN 02/13/24 17:02: Critical results received by Stacy Swanson RN and delivered to Laverne Alva by Stacy Swanson RN. Documented under Shari Mendez in error. Original Note: 1630 Received notification from lab of Lactate critical results of 5.2, informed Laverne Alva of same.
[2024-02-13] MEDS: neomycin-poly-bacitracin oint 28 gm 3 APPLIC TOPICAL (16:44)
[2024-02-13 16:52] LABS: Troponin 5 6HR 127.7 ng/L (0-10); Troponin 5 6HR Delta 78.7 ng/L (0-12)
--- NOTE | 2024-02-13 17:04 | SUR.PREOP ---
1650 Critical lab results received for pt as follows. 6 hour Troponin 127.7 and 6 hour Delta 78.7. Informed Kaleb Damon, SOUND DESIGNER of same.
[2024-02-13] MEDS: propofol 1,000 MG/100 ML INJ 3.06 MG IV (17:11)
[2024-02-13] MEDS: fentaNYL 1,000 MCG/100 ML BAG 2.5 MCG IV (17:11)
--- NOTE | 2024-02-13 17:16 | P.OP_ITS ---
Operative Report Date of procedure: February 13, 2024 Pre-op diagnosis: Shock Post-op diagnosis: Shock Bile leak Procedure done: Diagnostic laparoscopy with abdominal washout Implants: 3 19 [place] Jax drains Specimens removed/disposition: 2500 cc of bilious fluid Surgeon: David Irby DO Anesthesia: General and Local Estimated blood loss (mL): 5 Complications: None apparent Brief History: This a very pleasant 64-year-old female who underwent an outpatient laparoscopic cholecystectomy yesterday. During the procedure there was a dense scarring of the distal stomach to the gallbladder which was taken down. Otherwise the procedure went unremarkably. She presented back to the hospital last night with abdominal pain. She went into shock and required vasopressors and was having abdominal pain. Multiple CTs of the abdomen pelvis did not show any significant finding other than postoperative findings. Decision was made to perform an emergent diagnostic laparoscopy with possible exploratory laparotomy. Procedure: Patient was wheeled operative room placed on the OR table in supine position. General endotracheal ovation was achieved by department of anesthesia. The abdomen was inspected prepped and draped in usual sterile fashion. A time was performed. All present were in agreement. 2% lidocaine with epinephrine was used to anesthetize the skin over her previous incisions in the left upper quadrant, umbilicus and 3 in the right upper quadrant. A 15 blade scalpel was used to reopen all 5 incisions. A Veress needle was used over Rainey's point to create 15 mmHg of intra-abdominal insufflation. A 5 mm trocar was then placed through this incision utilizing Optiview. A 5 mm trocar was placed into the umbilicus, a 12 mm trocar was placed into the epigastrium and 2 more 5 mm trocars were placed into the right upper quadrant. There was a large amount of bilious fluid throughout the abdomen. This was all suctioned and then irrigated out and further suctioned. A total of approximately 2500 cc of bilious fluid was suctioned. I then looked into the gallbladder fossa. The clips were clearly seen on the cystic duct. No injury in the liver bed was identified. I carefully examined the stomach and the observable duodenum. No injury was identified there. I placed 2 more clips on the proximal cystic duct even though 3 other clips were already present. I then examined the rest of the abdomen and could not find any further pathology. I mobilized omentum and placed a significant amount of omentum into the gallbladder fossa and clipped this in place to the falciform ligament with a 10 mm clip search engine marketing strategist. 3 drains, 19 [place] Jax drains, were placed into the abdomen. The right most drain went down the right colic gutter and into the pelvis. The middle drain went over the liver and into Morison's pouch. The left drain went lateral to the spleen and down the left colic gutter. Drains were sewn in place with 3-0 silk suture. Skin was closed with 4-0 nylon suture in a simple interrupted fashion. Sterile bandages were applied. Patient was then taken to the intensive care unit intubated. A HIDA scan has been ordered to check for bile leak.
--- NOTE | 2024-02-13 17:33 | ECG_ITS ---
[facility] Test Date: 2024-02-13 Pat Name: Isabel Lazo Department: Room: Gender: Female Weight Calculator: : 1960 Requested By: Triny Umaña Order Number: [id number] Reading MD: DENILSON FOLEY Measurements Intervals [place] Rate: 115 P: 50 HI: 120 QRS: 63 QRSD: 94 T: 65 QT: 322 QTc: 446 Interpretive Statements SINUS TACHYCARDIA ABNORMAL RHYTHM ECG Compared to ECG 02/13/2024 13:34:00 Short HI interval no longer present Electronically Signed On 02-14-2024 11:57:59 CDT by DENILSON FOLEY [id number]
[2024-02-13 17:51] LABS: ABG PCO2 35.6 mmHg (35-45); ABG PH Result 7.25 (7.35-7.45); Alveolar-Arterial Oxygen Gradi 74.1 mmHg (5-10); Arterial Blood Gas Hematocrit 44.8 % (37-47); Base Excess ABG -10.7 mmol/L (-2.0-2.0); Blood Gas Allen Test Pos; Blood Gas Operator Identificat CAK; Blood Gas Sample Site ALINE; Blood Gas Sample Type Arterial; Blood Gas Tidal Volume 0.48; Carboxyhemoglobin < 0.0 %THgb (0.4-20.1); HCO3 ABG 15.6 mmol/L (22-26); HGB O2 Sat 93.7 % (95-100); Ionized Calcium Level - ABG 1.2 mmol/L (1.1-1.4); Methemoglobin 1.2 % (0.4-1.5); Oxygen Device VENT; Oxygen Saturation ABG 94.6; PO2 ABG 93.7 mmHg (80.0-100.0); PO2 FiO2 Ratio Arterial Blood 93; Potassium Level - ABG 4.7 mmol/L (3.5-5.0); Total Hemoglobin 14.6 g/dL (12-16)
--- NOTE | 2024-02-13 17:53 | P.CONIM_ITS ---
Providers/Reason For Consult 2 Consulting Physician/Specialty*: Hospitalist Reason for Consult*: Postop management Attending Physician: Edgar Dupree MD Primary Care Provider: Karime Watts MD History of Present Illness History of Present Illness Isabel Lazo is a 64 year old female who came to the ICU postoperatively 02/12, status post multiple clips applied on cystic duct for concern related to biliary leak after recent cholecystectomy. Spoke with Dr. Irby. Patient had laparoscopic cholecystectomy 02/11, she was discharged from the hospital, patient came to the ER same night for her pain however she was discharged back home from the ER. 02/12 she presented back with worsening abdominal pain, she was found to be in septic shock she was taken to the OR right away for diagnostic laparoscopic with abdominal washout 2500 cc of bilious content was obtained during surgical intervention, At the time of evaluation patient is intubated, FiO2 100%, she is [id number], we have switched her phenylephrine to Levophed Currently Levophed is at 16 mics which were titrating down, she is extremely acidotic added bicarb drip with D5, will give her vancomycin, Zosyn and micafungin, added propofol and fentanyl Requested ABG which is consistent with metabolic acidosis, I have asked RT to decrease FiO2 down to 60% and PEEP of 5 Added IV fluids, requested stat echo Patient had received heparin in the OR, she had significant delta troponin which could be related septic cardiomyopathy Requested HIDA scan to rule out biliary leak in case of biliary leak patient needs to be transferred to tertiary center Family is in agreement Review of Systems 2 General: Reports: ROS unobtainable due to endotracheal tube Medications/Allergies Home Medications Medication Instructions Recorded Confirmed Last Taken Type diclofenac sodium 100 mg 100 mg PO BID 10/24/21 02/13/24 02/13/24 History tablet,extended release 24 hr glipizide 5 mg tablet See Rx Instructions .Route .COMPLEX 10/24/21 02/13/24 02/13/24 History lisinopril 5 mg tablet 5 mg PO DAILY 10/24/21 02/13/24 02/13/24 History docusate sodium 100 mg capsule 100 mg PO BID #14 caps 02/12/24 02/13/24 02/13/24 Rx (Colace) hydrocodone 7.5 mg-acetaminophen 1 tab PO Q6H PRN pain #20 tabs 02/12/24 02/13/24 02/12/24 Rx 325 mg tablet polyethylene glycol 3350 17 17 g PO DAILY 7 days #119 grams 02/12/24 02/13/24 Unknown Rx gram/dose oral powder (Miralax) Allergies Allergy/AdvReac Type Severity Reaction Status Date / Time No Known Allergies Allergy Verified 02/11/24 12:02 Current Medications Generic Name Dose Route Start Last Admin Trade Name Estelita PRN Reason Stop Dose Admin Norepinephrine Bitartrate 4 mg in 250 mls @ 0 mls/hr 02/13/24 11:15 02/13/24 13:02 Levophed IV 8 mcg/min .Q0M IVELISSE 30 mls/hr Administration Protocol Per Protocol Sodium Chloride 1,000 mls @ 30 mls/hr 02/13/24 15:15 02/13/24 15:16 Sodium Chloride 0.9% IV 02/14/24 15:14 30 mls/hr .Q24H IVELISSE Administration PFSH Acute 2 PFSH: Surgical History Status post laparoscopic cholecystectomy Social History Smoking and tobacco/nicotine status: former use of tobacco/nicotine Vitals/I&O/Wt Last Vital Signs Temp 97.6 F 02/13/24 15:05 Pulse 143 H 02/13/24 15:05 Resp 18 02/13/24 17:15 BP 100/75 02/13/24 15:05 Pulse Ox 97 02/13/24 17:15 O2 Del Method Room Air 02/13/24 10:13 FiO2 100 02/13/24 17:15 02/13/24 02/13/24 02/13/24 06:59 14:59 22:59 Intake Total 66.65 / 66.65 Balance 66.65 / 66.65 Weight last 48 hrs Weight 102.058 kg Physical Exam 2 Narrative: Patient is intubated and sedated She has 3 Jax drains On propofol and fentanyl Levophed FiO2 60% PEEP [address] NG tube in place Endotracheal tube size [address] Patient also has an art line I do not see any skin mottling or signs of cyanosis Urinary Catheter Management: Lisa: Cath Placed During This Visit: yes Urinary Catheter Date of Insertion: 02/13/24 Urinary Catheter Time of Insertion: 17:48 Data 02/13/24 10:19 02/13/24 10:19 A&P Assessment and plan (1) Septic shock: (2) Cardiomyopathy: (3) Status post laparoscopic cholecystectomy: (4) Metabolic acidosis: (5) CHRISTIANO (acute kidney injury): Plan Septic shock from GI source Recent laparoscopic cholecystectomy Concern for biliary leak 2500 ml of bile drained during the surgery today Jax drains in place draining bile at this point Requested HIDA scan I was told to take about 1 hour for the nuclear diet to come from [place] In case of biliary leak patient needs to be transferred to tertiary center for ERCP Currently patient is on Levophed at 16 mics Add vancomycin, Zosyn to be renally dosed add micafungin Perioperative respiratory failure Patient is intubated and sedated Currently on propofol and fentanyl I have asked nurse to keep patient on fentanyl and reduce dose of propofol because of recent sepsis induced cardiomyopathy Reduced FiO2 100% to 60% after reviewing ABG Keep PEEP at 5 Endotracheal tube size 7 Added Protonix Keep head end elevated Chlorhexidine mouthwash NG tube in place Severe metabolic acidosis related to septic shock Added bicarb drip Replenish electrolytes, keep an eye on calcium I will also give stress dose steroids Non-STEMI Requested echo Septic shock induced cardiomyopathy? I will put patient on therapeutic Lovenox High D-dimer could be related to severe sepsis/septic shock EKG does not show any ischemic or infarct changes, consistent with sinus tachycardia Sepsis induced ATN Monitor urine output call with creatinine Repeat CBC, CMP at this point along ABG Requesting HIDA scan Hyperglycemia: Patient is diabetic Start insulin drip monitor blood sugar every hour Target blood sugar 140-180 mg/dL Full code Family updated Spoke with general surgery Patient is critical Patient evaluated multiple times between 5:30 PM and 7 PM Patient has a central line, art line, Lisa catheter, 3 Jax drains, endotracheal tube, these procedures were done perioperatively Consult Attestations 2 Medical Necessity Statement: Critical sick patient in ICU Diagnoses Septic shock A41.9; R65.21 Cardiomyopathy I42.9 Status post laparoscopic cholecystectomy Z90.49 Metabolic acidosis E87.20 CHRISTIANO (acute kidney injury) N17.9
[2024-02-13 18:00] LABS: ABG PH Result 7.13 (7.35-7.45)
[2024-02-13] MEDS: pantoprazole 40 mg SDV IVP (18:02)
[2024-02-13] MEDS: heparin 5,000 unit/mL INJ 1 mL 5000 UNIT SUBCUT (18:02)
[2024-02-13] MEDS: sodium chloride 0.9% 1,000 ML 125 ML IV (18:14)
[2024-02-13] MEDS: micafungin 150 MG in sodium chloride 0.9% (100 ml) 100 ML 100 MG IV (18:27)
[2024-02-13] MEDS: hydrocortisone 100 mg/2 mL SDV IVP (18:37)
[2024-02-13] MEDS: sodium bicarbonate 150 MEQ in dextrose 5% 1,000 ML IV (18:41)
--- NOTE | 2024-02-13 19:07 | P.PHAVANC_ITS ---
Vancomycin Goal - Goal Vancomycin Goal:: 10-15 mg/L Vancomycin Indication:: Other - Therapy Current therapy:: Pip/Tazo, Other Antibiotic (MICAFUNGIN) Day of therpy:: Day [1]of [] Actual body weight (kg): 249 lb 1.957 oz [place] body weight: 68.5 Dosing weight (kg): 86.3 - Data Labs: WBC 14.19 10^3/uL (3.29-11.43) H 02/13/24 10:19 RBC 6.22 10^6/uL (3.85-5.65) H 02/13/24 10:19 Hgb 17.70 g/dL (11.27-16.99) H 02/13/24 10:19 Hct 56.6 % (36-47) H 02/13/24 10:19 MCV 91.0 fl (85-98) 02/13/24 10:19 MCH 28.5 pg (27-33) 02/13/24 10:19 MCHC 31.3 g/dL (30-55) 02/13/24 10:19 RDW 14.4 % (12.1-15.1) 02/13/24 10:19 Sodium 137 mmol/L (136-145) 02/13/24 10:19 Potassium 4.5 mmol/L (3.5-5.1) 02/13/24 10:19 Chloride 98 mmol/L (98-107) 02/13/24 10:19 Carbon Dioxide 13 mmol/L (22-29) L 02/13/24 10:19 Anion Gap 30.5 (5-19) H 02/13/24 10:19 BUN 29 mg/dL (8-23) H 02/13/24 10:19 Creatinine 2.1 mg/dL (0.5-0.9) H 02/13/24 10:19 GFR Calculation 23.6 mL/min (90-130) L 02/13/24 10:19 Last dialysis session:: N/A Treatment plan:: new consult Regimen:: INITIAL DOSE 1500 MG Q36H Follow up:: WILL MONITOR RENAL FUNCTION AND FOLLOW UP DAILY
[2024-02-13 19:09] LABS: Glucose Point of Care 253 mg/dL (70-110)
[2024-02-13] MEDS: norepinephrine 4 MG/250 ML BAG 37.5 MG IV (19:16)
[2024-02-13 19:22] LABS: Basophils # 0.1 10^3/uL (0.0-0.1); Basophils % 0.5 %; Eosinophils # 0.2 10^3/uL (0.0-0.8); Eosinophils % 1.1 %; Hematocrit 47.9 % (36-47); Lymphocytes # 1.4 10^3/uL (0.8-4.8); Lymphocytes % 9.6 %; Mean Corpuscular HGB Conc 31.5 g/dL (30-55); Mean Corpuscular Hemoglobin 28.9 pg (27-33); Mean Corpuscular Volume 91.8 fl (85-98); Mean Platelet Volume 11.6 fL (7.4-10.4); Monocytes # 0.9 10^3/uL (0.2-0.9); Monocytes % 6.2 %; Neutrophils % 82.3 %; Nucleated Red Blood Cells % 0 %; Platelet Count 314 10^3/cmm (157-399); Red Blood Count 5.22 10^6/uL (3.85-5.65); Red Cell Distribution Width 14.7 % (12.1-15.1); White Blood Count 15.06 10^3/uL (3.29-11.43)
--- NOTE | 2024-02-13 19:28 | ECG_ITS ---
[facility] Test Date: 2024-02-13 Pat Name: Isabel Lazo Department: Room: ICU11 Gender: Female Camp Counselor: : 1960 Requested By: Triny Umaña Order Number: [id number] Reading MD: DENILSON FOLEY Measurements Intervals [place] Rate: 108 P: 35 [place]: 121 QRS: 42 QRSD: 98 T: 66 QT: 316 QTc: 424 Interpretive Statements SINUS TACHYCARDIA NONSPECIFIC T-WAVE ABNORMALITY ABNORMAL RHYTHM ECG Compared to ECG 02/13/2024 17:33:50 T-wave abnormality now present Electronically Signed On 02-14-2024 11:57:13 CDT by DENILSON FOLEY [email or web address]
[2024-02-13 19:33] LABS: Slide Review Slide Review Perform
[2024-02-13 19:46] LABS: Procalcitonin 31.37 ng/mL (0-0.5)
[2024-02-13 19:58] LABS: Alanine Aminotransferase 107 U/L (0-33); Albumin Level 4.1 g/dL (3.5-5.2); Alkaline Phosphatase 80 U/L (35-105); Anion Gap 39.3 (5-19); Aspartate Amino Transferase 57 U/L (0-32); Blood Urea Nitrogen 29 mg/dL (8-23); Calcium 9.8 mg/dL (8.5-10.5); Chloride 93 mmol/L (98-107); Creatinine Clr Calc Pharmacy 36.3864; Globulin 2.9 g/dL (1.3-4.6); Glomerular Filtration Rate 23.6 mL/min (90-130); Glucose 303 mg/dL (65-115); Osmolality Calculated 297 mOsm/kg (285-295); Potassium 4.3 mmol/L (3.5-5.1); Sodium 135 mmol/L (136-145); Total Bilirubin 0.8 mg/dL (0.15-1.2)
[2024-02-13 20:01] LABS: Carbon Dioxide 7 mmol/L (22-29)
[2024-02-13 21:31] LABS: Glucose Point of Care 309 mg/dL (70-110)
[2024-02-13] MEDS: INSULIN REGULAR IN 0.9 % NACL 100 UNIT/100 ML BAG 7.47 UNIT IV (21:31)
[2024-02-13] MEDS: vancomycin 1,500 MG/300 ML PIGGYBACK 200 MG IV (21:51)
[2024-02-13 22:22] LABS: Potassium 4.8 mmol/L (3.5-5.1)
[2024-02-13 22:29] LABS: Glucose Point of Care 282 mg/dL (70-110)
--- NOTE | 2024-02-13 22:30 | XRR_ITS ---
PROCEDURE INFORMATION: Exam: XR Chest Exam date and time: 02/13/2024 11:00 PM Age: 64 years old Clinical indication: Device placement; Ng tube; Prior surgery; Surgery date: Post-operative (0-2 days); Surgery type: Hemicolectomy / gb; Additional info: Ng tube placement TECHNIQUE: Imaging protocol: Radiologic exam of the chest. Views: 1 view. COMPARISON: CT angio chest w abd pel w con 02/13/2024 2:15 PM FINDINGS: Tubes, catheters and devices: Right neck approach central venous catheter terminates in the distal SVC. Endotracheal tube is 5 cm cephalad to the antonina. Enteric catheter is in line with the midthoracic esophagus. The side hole is above the antonina. Lungs: Unremarkable. No consolidation. Pleural spaces: Unremarkable. No pleural effusion. No pneumothorax. Heart/Mediastinum: Unremarkable. No cardiomegaly. Bones/joints: Unremarkable. Gastrointestinal tract: There is contrast density in the lumen of the proximal stomach. XR/XR chest 1V portable [id number] IMPRESSION: The enteric catheter is within the midthoracic esophagus, and malpositioned. Repositioning or advancement is necessary.
--- NOTE | 2024-02-13 22:30 | PC.NURSE ---
Physician Communication Insulin drip delayed due to being in hepatobiliary scan as well as 1800 bmp not being resulted. Stat CMP ordered. Dr. Warner contacted and order received to start insulin drip prior to having cmp result. Dr. Warner additionally notified of fever of 100.9 rectally. Order received for 650 mg tylenol Q6HR PRN for fever.
[2024-02-13 22:33] LABS: Alanine Aminotransferase 66 U/L (0-33); Albumin Level 2.8 g/dL (3.5-5.2); Alkaline Phosphatase 42 U/L (35-105); Anion Gap 17.8 (5-19); Aspartate Amino Transferase 72 U/L (0-32); Blood Urea Nitrogen 30 mg/dL (8-23); Calcium 7.8 mg/dL (8.5-10.5); Carbon Dioxide 17 mmol/L (22-29); Chloride 106 mmol/L (98-107); Glomerular Filtration Rate 30.2 mL/min (90-130); Glucose 355 mg/dL (65-115); Osmolality Calculated 302 mOsm/kg (285-295); Sodium 136 mmol/L (136-145); Total Bilirubin 0.6 mg/dL (0.15-1.2); Total Protein 4.8 g/dL (6.6-8.7)
[2024-02-13 22:34] LABS: Creatinine Clr Calc Pharmacy 44.9479
--- NOTE | 2024-02-13 23:15 | PC.NURSE ---
Spoke with Dr Warner in ref to patient NG tube placement and route for Tylenol for a fever. Received orders to place an OG tube and change tylenol to suppository.
[2024-02-13 23:25] LABS: Glucose Point of Care 294 mg/dL (70-110)
[2024-02-14] VITALS (59 sets, daily range): BP systolic 84–132; BP diastolic 56–92; PULSE 84–177; RESP 18–20; TEMP 37.6–37.8; O2SAT 90–100
--- NOTE | 2024-02-14 | PC.NURSE ---
Hepatobiliary Scan Results Results of hepatobiliary scan relayed to Dr. Irby, Dr. Warner, and family at bedside. Statement made by Dr. Irby that transfer to tertiary facility for ERCP will be initiated in the morning. Family verbalized understanding.
[2024-02-14] MEDS: acetaminophen 650 mg Supp PR (00:22)
[2024-02-14] MEDS: norepinephrine 4 MG/250 ML BAG 52.5 MG IV ×2 (00:44→05:51)
--- NOTE | 2024-02-14 00:50 | XRR_ITS ---
PROCEDURE INFORMATION: Exam: XR Chest Exam date and time: 02/14/2024 1:50 AM Age: 64 years old Clinical indication: Screening exam; Other screening; Prior surgery; Surgery date: Post-operative (0-2 days); Surgery type: Choley and bowel resection; Additional info: Check og tube placement TECHNIQUE: Imaging protocol: Radiologic exam of the chest. Views: 1 view. COMPARISON: CR (CHEST, ) 02/13/2024 11:00 PM FINDINGS: Tubes, catheters and devices: Central venous catheter in the distal SVC. No change in the endotracheal tube position. Enteric catheter extends into the distal stomach. Lungs: Hazy opacities at the left lung base are similar to prior. Pleural spaces: Unremarkable. No pleural effusion. No pneumothorax. Heart/Mediastinum: Unremarkable. No cardiomegaly. Bones/joints: Unremarkable. Gastrointestinal tract: Contrast in the lumen of the stomach. XR/XR chest 1V portable [id number] IMPRESSION: Satisfactory enteric catheter position within the stomach.
[2024-02-14 00:57] LABS: Glucose Point of Care 268 mg/dL (70-110)
[2024-02-14 02:05] LABS: Glucose Point of Care 268 mg/dL (70-110)
[2024-02-14] MEDS: sodium chloride 0.9% 1,000 ML 125 ML IV ×2 (02:18→11:22)
[2024-02-14 02:36] LABS: Blood Urea Nitrogen 29 mg/dL (8-23); Calcium 7.8 mg/dL (8.5-10.5); Carbon Dioxide 20 mmol/L (22-29); Chloride 106 mmol/L (98-107); Creatinine Clr Calc Pharmacy 47.7572; Glomerular Filtration Rate 32.3 mL/min (90-130); Glucose 303 mg/dL (65-115); Osmolality Calculated 301 mOsm/kg (285-295); Sodium 137 mmol/L (136-145)
[2024-02-14 02:37] LABS: Lactic Sepsis W/Reflex 3.6 mmol/L (0.5-2.2)
--- NOTE | 2024-02-14 03:13 | PC.NURSE ---
Contacted Dr. Warner in ref to patients condition. Bicarb drip in D5 has infused, Insulin drip continues, and Bicarb is up to 20. Most recent POC BG is 221. No new orders received, continue to monitor.
[2024-02-14] MEDS: piperacillin-tazobactam 3.375 GM in sodium chloride 0.9% (plus) 50 ML IV ×2 (03:31→11:20)
[2024-02-14 04:00] LABS: Reflex Lactate Order REFLEX LACTIC ORDERD
[2024-02-14 04:02] LABS: ABG PCO2 34.3 mmHg (35-45); ABG PH Result 7.36 (7.35-7.45); Arterial Blood Gas Hematocrit 41.5 % (37-47); Base Excess ABG -5.2 mmol/L (-2.0-2.0); Blood Gas Allen Test Pos; Blood Gas Sample Site ARTLINE; Blood Gas Sample Type Arterial; Blood Gas Tidal Volume 0.48; HCO3 ABG 19.4 mmol/L (22-26); Oxygen Device VENT; PO2 ABG 81.8 mmHg (80.0-100.0); PO2 FiO2 Ratio Arterial Blood 136
[2024-02-14 04:19] LABS: Glucose Point of Care 221 mg/dL (70-110)
[2024-02-14 04:19] LABS: Glucose Point of Care 181 mg/dL (70-110)
[2024-02-14 04:23] LABS: Alanine Aminotransferase 60 U/L (0-33); Albumin Level 2.5 g/dL (3.5-5.2); Alkaline Phosphatase 47 U/L (35-105); Anion Gap 16.4 (5-19); Aspartate Amino Transferase 60 U/L (0-32); Blood Urea Nitrogen 30 mg/dL (8-23); Carbon Dioxide 19 mmol/L (22-29); Chloride 108 mmol/L (98-107); Globulin 2.5 g/dL (1.3-4.6); Glomerular Filtration Rate 34.9 mL/min (90-130); Glucose 249 mg/dL (65-115); Osmolality Calculated 303 mOsm/kg (285-295); Phosphorus 2.5 mg/dL (2.5-4.5); Potassium 4.4 mmol/L (3.5-5.1); Sodium 139 mmol/L (136-145); Total Bilirubin 0.4 mg/dL (0.15-1.2)
[2024-02-14 04:43] LABS: Basophils # 0.1 10^3/uL (0.0-0.1); Basophils % 0.7 %; Eosinophils # 0.1 10^3/uL (0.0-0.8); Eosinophils % 0.5 %; Hematocrit 42.5 % (36-47); Lymphocytes # 1.2 10^3/uL (0.8-4.8); Lymphocytes % 8.1 %; Mean Corpuscular Hemoglobin 29.1 pg (27-33); Mean Platelet Volume 11.7 fL (7.4-10.4); Monocytes # 0.6 10^3/uL (0.2-0.9); Monocytes % 4.1 %; Neutrophils # 12.84 10^3/uL (1.8-7.7); Neutrophils % 86.1 %; Nucleated Red Blood Cells % 0 %; Platelet Count 302 10^3/cmm (157-399); Red Blood Count 4.67 10^6/uL (3.85-5.65); Red Cell Distribution Width 14.6 % (12.1-15.1); White Blood Count 14.91 10^3/uL (3.29-11.43)
[2024-02-14 04:50] LABS: C Reactive Protein 407.3 mg/L (0.0-4.9)
[2024-02-14] MEDS: propofol 1,000 MG/100 ML INJ 6.12 MG IV (04:53)
[2024-02-14] MEDS: pantoprazole 40 mg SDV IVP (04:53)
[2024-02-14 05:02] LABS: Lactic Acid level (Lactate) 2.6 mmol/L (0.5-2.2)
[2024-02-14 05:02] LABS: Magnesium 1.9 mg/dL (1.7-2.3)
[2024-02-14 05:08] LABS: Slide Review Slide Review Perform
[2024-02-14] MEDS: chlorhexidine gluconate 4% Btl 118 mL 1 APPLIC TOPICAL (05:15)
[2024-02-14 05:21] LABS: Glucose Point of Care 175 mg/dL (70-110)
[2024-02-14 05:41] LABS: Glucose Point of Care 233 mg/dL (70-110)
[2024-02-14] MEDS: hydrocortisone 100 mg/2 mL SDV IVP (06:13)
[2024-02-14] MEDS: enoxaparin 120 mg/0.8 mL Syringe 110 MG SUBCUT (06:14)
[2024-02-14] MEDS: INSULIN REGULAR IN 0.9 % NACL 100 UNIT/100 ML BAG 8.05 UNIT IV (06:43)
[2024-02-14 07:13] LABS: Glucose Point of Care 138 mg/dL (70-110)
[2024-02-14 08:10] LABS: Anion Gap 13.2 (5-19); Blood Urea Nitrogen 30 mg/dL (8-23); Calcium 7.7 mg/dL (8.5-10.5); Carbon Dioxide 21 mmol/L (22-29); Chloride 108 mmol/L (98-107); Creatinine Clr Calc Pharmacy 51.1247; Glomerular Filtration Rate 34.9 mL/min (90-130); Glucose 167 mg/dL (65-115); Osmolality Calculated 296 mOsm/kg (285-295); Potassium 4.2 mmol/L (3.5-5.1); Sodium 138 mmol/L (136-145)
[2024-02-14 08:18] LABS: Glucose Point of Care 120 mg/dL (70-110)
[2024-02-14] MEDS: bumetanide 0.25 mg/mL SDV 4 mL 1 MG IVP (08:56)
--- NOTE | 2024-02-14 10:03 | W.PM.EVENTAC ---
Event Note Event Note: Labs reviewed, patient was examined, there was no family around the patient, I spoke with 2 brothers at the bedside yesterday evening, I was told by the nursing staff and Dr. Irby that there is plan in place to transfer to [facility] for ERCP and stent placement for biliary leak No significant overnight events Bicarb drip has been turned off, stress dose steroids discontinued, insulin drip turned off She is not positive fluid balance I have given her 1 dose of diuretic via IV Her Levophed has been weaned off from 16 mics to less than 10 mics today FiO2 55% patient is intubated and sedated Blood pressure with MAP above 70 mmHg, White count 14,000, BMP shows creatinine of 1.5, potassium 4.2, glucose 160 Lactic acid 2.6, magnesium 1.9 procalcitonin 31, lipase 294 albumin 2.5 Patient is intubated and sedated Levophed running at the bedside FiO2 55% PEEP of 5 Right art line in place Lisa catheter with concentrated urine [address] with biliary drainage in the container Patient does not respond to painful stimuli S1, S2 sinus rhythm heart rate around 80s Assessment and plan There is plan in place to transfer patient for ERCP and biliary stent placement today For now we are continuing micafungin vancomycin and Zosyn Metabolic acidosis improved, bicarb drip turned off Hyperglycemia improved blood sugar 167, insulin drip has been turned off Stress dose steroids turned off, Levophed has been weaned off from 16 mics now below 10 mics today Wean off FiO2 currently she is on 55% Positive fluid balance, given 1 mg IV Bumex Continue Protonix IV Chlorhexidine mouthwash General Surgery planning for transfer to [facility] today Event Notes Attestations Time Spent in Patient Care: 16 - 35 minutes
[2024-02-14 10:04] LABS: Glucose Point of Care 161 mg/dL (70-110)
[2024-02-14] MEDS: amiodarone 50 mg/mL SDV 3 mL 150 MG IVP (10:28)
[2024-02-14] MEDS: dilTIAZem 5 mg/mL SDV 5 mL IVP (10:39)
[2024-02-14] MEDS: fentaNYL 1,000 MCG/100 ML BAG 12.5 MCG IV (10:46)
--- NOTE | 2024-02-14 10:50 | XRR_ITS ---
PROCEDURE INFORMATION: Exam: XR Chest Exam date and time: 02/14/2024 10:59 AM Age: 64 years old Clinical indication: Other: Fluid overload TECHNIQUE: Imaging protocol: Radiologic exam of the chest. Views: 1 view. COMPARISON: CR (CHEST, ) 02/14/2024 1:50 AM FINDINGS: Tubes, catheters and devices: Endotracheal tube is present with its tip 2.5 cm above the antonina. Central venous catheter seen on the right with its tip overlying the SVC. Nasogastric tube is present with its tip below the level of the film. Lungs: There are bilateral perihilar and basilar opacities. Findings are felt in part be related to layering pleural fluid and atelectasis. Pleural spaces: Suspect bilateral layering pleural effusions. Heart/Mediastinum: The heart is slightly enlarged. Bones/joints: Unremarkable. XR/XR chest 1V portable [id number] IMPRESSION: 1. Cardiomegaly with bilateral perihilar and basilar opacities worse on this exam when compared to prior exam from same day.
[2024-02-14 11:18] LABS: Glucose Point of Care 154 mg/dL (70-110)
--- NOTE | 2024-02-14 11:23 | ECG_ITS ---
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: : 1960 Requested By: Edgar Dupree Order Number: [id number] Reading MD: EDGAR FOLEY Measurements Intervals [place] Rate: 174 P: 0 NC: 0 QRS: 51 QRSD: 94 T: 0 QT: 269 QTc: 458 Interpretive Statements ATRIAL FIBRILLATION WITH RAPID VENTRICULAR RESPONSE NONSPECIFIC ST & T-WAVE ABNORMALITY CRITICAL TEST RESULT Compared to ECG 02/13/2024 23:12:43 Sinus tachycardia no longer present T-wave abnormality still present Electronically Signed On 02-14-2024 11:45:37 CDT by EDGAR FOLEY [id number]
--- NOTE | 2024-02-14 12:11 | P.TS_ITS ---
Transfer Summary Providers Date of Admission: 02/13/24 17:50 Date of Discharge/Transfer: 02/14/24 Attending Provider at Admission: Edgar Dupree MD Attending Provider at Transfer: Edgar Dupree MD Primary Care Provider: Karime Watts MD Transfer Plans: Anticipated date of transfer: 02/14/24 . Diagnoses at Discharge Discharge Diagnosis (1) Septic shock: Status: Acute (2) Cardiomyopathy: Status: Acute (3) Status post laparoscopic cholecystectomy: Status: Acute (4) Metabolic acidosis: Status: Acute (5) CHRISTIANO (acute kidney injury): Status: Acute Reason for Visit Reason for Visit Sob, pain, darkening around eyes Hospital Course Hospital Course This is a very pleasant 64-year-old female who underwent an outpatient laparoscopic cholecystectomy on 02/12/2024. She presented back to the hospital later that evening with abdominal pain. She was found to be in shock. She underwent diagnostic laparoscopy and approximately 2500 cc of bilious fluid was suctioned from her abdomen. No obvious pathology was identified during laparoscopy. 3 drains were placed into her abdomen. Right sided drain goes down the right colic gutter and into the pelvis. Middle drain goes along the right side of the liver and into Morison's pouch. Left drain goes along the spleen and down the left colic gutter. A postoperative HIDA scan shows an intact common bile duct but a bile leak, possibly from a duct of Luschka. [facility] Ezekiel agreed to accept transfer the patient for intensive care and ERCP with stent placement. Physical Exam Narrative: General : Patient is well developed , no acute distress, intubated and sedated Head : Normal cephalic, a-traumatic. Ears : Pinnae and external canal are normal. Hearing is normal. Eyes : PERRLA, Sclera and injection are normal. No conjunctival discharge. Nose : Mucous membranes are without erythema. Throat : buccal mucosa is normal, gums are without significant recession or hypertrophy. Lungs : Equal chest rise bilaterally, no use of accessory muscles, trachea is midline. Cor : A flutter Abdomen : Soft, ND, appropriately tender, no g/r/m Extremities : No edema, no cyanosis or clubbing, dorsalis pedis pulses are present bilaterally, non-tender to palpation of calves. Upper extremities are normal bilaterally. Back : non-tender to palpation, no CVA tenderness. Neuro : CN II - XII intact, Upper and lower extremities have equal and full strength Urinary Catheter Management: Lisa: Cath Placed During This Visit: yes Reason for Continuing Indwelling Catheter: Accurate Measurement of Urinary Output in Critically Ill Patients Urinary Catheter Date of Insertion: 02/13/24 Urinary Catheter Time of Insertion: 17:48 TS Data Studies Completed and Pending Pending at discharge Category Date Time Status Basic Metabolic Panel AM LABS Lab 02/15/24 04:00 Uncollected Basic Metabolic Panel AM LABS Lab 02/16/24 04:00 Uncollected Blood Culture Stat Lab 02/13/24 18:40 Results Complete Blood Count w/Auto AM LABS Lab 02/15/24 04:00 Uncollected Complete Blood Count w/Auto AM LABS Lab 02/16/24 04:00 Uncollected Comprehensive Metabolic Panel AM LABS Lab 02/15/24 04:00 Ordered Comprehensive Metabolic Panel AM LABS Lab 02/16/24 04:00 Ordered Magnesium AM LABS Lab 02/15/24 04:00 Uncollected Magnesium AM LABS Lab 02/16/24 04:00 Uncollected Sputum Culture and Gram Stain Stat Lab 02/14/24 11:48 Received Completed Studies During Hospitalization Category Date Time Status CT abdomen pelvis w con* [id number] Stat Cat Scan 02/13/24 10:[address] abdomen pelvis [CT angio chest w abd pel w Cat Scan 02/13/24 13:15 Completed con] Stat CXRP [XR chest 1V portable 23965] Stat Exams 02/13/24 10:15 Completed CXRP [XR chest 1V portable [id number]] Stat Exams 02/13/24 11:40 Completed CXRP [XR chest 1V portable [id number]] Stat Exams 02/13/24 13:15 Completed CXRP [XR chest 1V portable [id number]] Stat Exams 02/14/24 10:50 Completed XR chest 1V portable [id number] ONCE Exams 02/14/24 00:50 Completed XR chest 1V portable [id number] Routine Exams 02/13/24 22:30 Completed NM hepatobiliary wo phar [id number] Stat Nuc Med 02/13/24 16:02 Completed CV. echo complete* [id number] Routine Ultrasound 02/14/24 17:28 Completed Laboratory Last Values WBC 14.91 10^3/uL (3.29-11.43) H 02/14/24 03:18 RBC 4.67 10^6/uL (3.85-5.65) 02/14/24 03:18 Hgb 13.60 g/dL (11.27-16.99) 02/14/24 03:18 Hct 42.5 % (36-47) 02/14/24 03:18 MCV 91.0 fl (85-98) 02/14/24 03:18 MCH 29.1 pg (27-33) 02/14/24 03:18 MCHC 32.0 g/dL (30-55) 02/14/24 03:18 RDW 14.6 % (12.1-15.1) 02/14/24 03:18 Plt Count 302 10^3/cmm (157-399) 02/14/24 03:18 MPV 11.7 fL (7.4-10.4) H 02/14/24 03:18 Neut % (Auto) 86.1 % 02/14/24 03:18 Lymph % (Auto) 8.1 % 02/14/24 03:18 [place] % (Auto) 4.1 % 02/14/24 03:18 Eos % (Auto) 0.5 % 02/14/24 03:18 Baso % (Auto) 0.7 % 02/14/24 03:18 Neut # (Auto) 12.84 10^3/uL (1.8-7.7) H 02/14/24 03:18 Lymph # (Auto) 1.2 10^3/uL (0.8-4.8) 02/14/24 03:18 [place] # (Auto) 0.6 10^3/uL (0.2-0.9) 02/14/24 03:18 Eos # (Auto) 0.1 10^3/uL (0.0-0.8) 02/14/24 03:18 Baso # (Auto) 0.1 10^3/uL (0.0-0.1) 02/14/24 03:18 Nucleated RBC % (auto) 0 % 02/14/24 03:18 Total Counted 100 (0-100) 02/13/24 10:19 Atypical Lymphs % 1.0 % (0-5) 02/13/24 10:19 Absolute Neutrophils 10.6 10^3/cmm (1.4-6.5) H 02/13/24 10:19 Segmented Neutrophils 54 % 02/13/24 10:19 Abs Segm Neuts (Man) 7.7 10/cmm (1.6-7.1) H 02/13/24 10:19 Band Neutrophils 21.0 % 02/13/24 10:19 Abs Band Neuts (Man) 3.0 10^3/cmm (0.0-1.2) H 02/13/24 10:19 Absolute Lymphocytes 2.3 10^3/cmm (1.2-3.4) 02/13/24 10:19 Lymphocytes (Manual) 15 % 02/13/24 10:19 Monocytes (Manual) 1.0 % 02/13/24 10:19 Absolute Monocytes 0.1 10^3/cmm (0.1-0.6) 02/13/24 10:19 Eosinophils (Manual) 0 % 02/13/24 10:19 Absolute Eosinophils 0.0 10^3/cmm (0.0-0.7) 02/13/24 10:19 Basophils (Manual) 0.0 % 02/13/24 10:19 Absolute Basophils 0.0 10^3/cmm (0.0-0.2) 02/13/24 10:19 Metamyelocytes 7.0 % 02/13/24 10:19 Myelocytes 1.0 % 02/13/24 10:19 Nucleated RBCs # 0.0 /100WBC 02/14/24 03:18 Smudge Cells Trace 02/13/24 10:19 Platelet Estimate Increased (Normal) H 02/13/24 10:19 Giant Platelets Trace 02/13/24 10:19 D-Dimer 7.48 ug/mLFEU (0-0.59) H 02/13/24 10:19 Specimen Type Arterial 02/14/24 03:55 Sample Site Artline 02/14/24 03:55 ABG pH 7.36 (7.35-7.45) 02/14/24 03:55 ABG pCO2 34.3 mmHg (35-45) L 02/14/24 03:55 ABG pO2 81.8 mmHg (80.0-100.0) 02/14/24 03:55 ABG PO2/FiO2 Ratio 136 02/14/24 03:55 ABG HCO3 19.4 mmol/L (22-26) L 02/14/24 03:55 ABG O2 Saturation 94.6 02/13/24 17:40 ABG Base Excess -5.2 mmol/L (-2.0-2.0) L 02/14/24 03:55 [place] Test Pos 02/14/24 03:55 A-a O2 Gradient 74.1 mmHg (5-10) H 02/13/24 17:40 Hematocrit 41.5 % (37-47) 02/14/24 03:55 Hgb O2 Saturation 93.7 % (95-100) L 02/13/24 17:40 Carboxyhemoglobin < 0.0 %THgb (0.4-20.1) L 02/13/24 17:40 Methemoglobin 1.2 % (0.4-1.5) 02/13/24 17:40 Total Hemoglobin 14.6 g/dL (12-16) 02/13/24 17:40 Sodium 135.0 mmol/L (131-143) 02/13/24 17:40 Potassium 4.7 mmol/L (3.5-5.0) 02/13/24 17:40 Glucose 235.0 mg/dL (70-115) H 02/13/24 17:40 Ionized Calcium 1.2 mmol/L (1.1-1.4) 02/13/24 17:40 O2 Delivery Device Vent 02/14/24 03:55 O2 Liters/Min 2.0 % 02/13/24 12:16 FiO2 60.0 % 02/14/24 03:55 Tidal Volume 0.48 02/14/24 03:55 PEEP 5.0 cmH20 02/14/24 03:55 Head Of Mobile ID [email or web address] 02/14/24 03:55 Sodium 138 mmol/L (136-145) 02/14/24 07:35 Potassium 4.2 mmol/L (3.5-5.1) 02/14/24 07:35 Chloride 108 mmol/L (98-107) H 02/14/24 07:35 Carbon Dioxide 21 mmol/L (22-29) L 02/14/24 07:35 Anion Gap 13.2 (5-19) 02/14/24 07:35 BUN 30 mg/dL (8-23) H 02/14/24 07:35 Creatinine 1.5 mg/dL (0.5-0.9) H 02/14/24 07:35 GFR Calculation 34.9 mL/min (90-130) L 02/14/24 07:35 Glucose 167 mg/dL (65-115) H 02/14/24 07:35 POC Glucose 154 mg/dL (70-110) H 02/14/24 10:24 Calculated Osmolality 296 mOsm/kg (285-295) H 02/14/24 07:35 Lactic Acid 3.6 mmol/L (0.5-2.2) H 02/14/24 02:07 Lactic Acid (Sepsis) 2.6 mmol/L (0.5-2.2) H 02/14/24 04:39 Calcium 7.7 mg/dL (8.5-10.5) L 02/14/24 07:35 Phosphorus 2.5 mg/dL (2.5-4.5) 02/14/24 03:18 Magnesium 1.9 mg/dL (1.7-2.3) 02/14/24 03:18 Total Bilirubin 0.4 mg/dL (0.15-1.2) 02/14/24 03:18 AST 60 U/L (0-32) H 02/14/24 03:18 ALT 60 U/L (0-33) H 02/14/24 03:18 Alkaline Phosphatase 47 U/L (35-105) 02/14/24 03:18 Troponin T Baseline 49 ng/L (0-10) H 02/13/24 10:19 Troponin T Hi Sens 6Hr 127.7 ng/L (0-10) H 02/13/24 16:08 Troponin T Hi Sens 6Hr Delta 78.7 ng/L (0-12) H* 02/13/24 16:08 C-Reactive Protein 407.3 mg/L (0.0-4.9) H 02/14/24 03:18 NT-Pro-B Natriuret Pep 2031 pg/mL (0-125) H 02/13/24 10:19 Total Protein 5.0 g/dL (6.6-8.7) L 02/14/24 03:18 Albumin 2.5 g/dL (3.5-5.2) L 02/14/24 03:18 Globulin 2.5 g/dL (1.3-4.6) 02/14/24 03:18 Lipase 294 U/L (13-60) H 02/13/24 10:19 Procalcitonin 31.37 ng/mL (0-0.5) H 02/13/24 10:19 Radiology Impressions Abdomen/Pelvis CT 02/13/24 10:18 IMPRESSION: 1. No evidence of pulmonary embolus. 2. Small bilateral pleural effusions with bibasilar atelectasis. 3. Enteric tube has been retracted to the mid esophagus. This could be advanced if desired. 4. No evidence of oral contrast leak outside the stomach or small bowel lumen. Normal duodenal C-loop. Normal cholecystectomy bed. 5. Stable moderate fluid in the pelvis some of which may represent blood clot products with slightly increased attenuation. 6. Mild thickening and induration of the transverse colon is nonspecific. Tiny amount of air in the transverse mesocolon can be seen with mesenteric ischemia but indeterminate. Recommend clinical correlation and close interval follow-up for developing pneumatosis. 7. A few pockets of layering air in the anterior abdomen likely postoperative. Notified Dr. Mahamed ALEXANDRA at 02/13/2024 3:48 PM. Chest/Abdomen/Pelvis CT 02/13/24 13:15 IMPRESSION: 1. No evidence of pulmonary embolus. 2. Small bilateral pleural effusions with bibasilar atelectasis. 3. Enteric tube has been retracted to the mid esophagus. This could be advanced if desired. 4. No evidence of oral contrast leak outside the stomach or small bowel lumen. Normal duodenal C-loop. Normal cholecystectomy bed. 5. Stable moderate fluid in the pelvis some of which may represent blood clot products with slightly increased attenuation. 6. Mild thickening and induration of the transverse colon is nonspecific. Tiny amount of air in the transverse mesocolon can be seen with mesenteric ischemia but indeterminate. Recommend clinical correlation and close interval follow-up for developing pneumatosis. 7. A few pockets of layering air in the anterior abdomen likely postoperative. Notified Dr. Mahamed ALEXANDRA at 02/13/2024 3:48 PM. Hepatobiliary Scan Nuclear Medicine 02/13/24 16:02 IMPRESSION: 1. There is radiotracer visible within catheter tubing which appears to be extending from the gallbladder fossa region. There is no correlate catheter visualized on comparison CT scan studies. Was there interval surgical or percutaneous drainage catheter placement? No additional history is provided. 2. The radiotracer within the presumed catheter may represent a bile leak, as there also appears to be some abnormal radiotracer accumulation under the inferior margin of the right hepatic lobe. Chest X-Ray 02/14/24 10:50 IMPRESSION: 1. Cardiomegaly with bilateral perihilar and basilar opacities worse on this exam when compared to prior exam from same day. Recent Clincial Data Last Vital Signs Temp 99.7 F H 02/14/24 05:10 Pulse 88 02/14/24 08:30 Resp 18 02/14/24 11:37 BP 126/75 02/14/24 08:30 Pulse Ox 98 02/14/24 11:37 O2 Del Method Mechanical Ventilation 02/14/24 08:25 FiO2 50 02/14/24 11:37 Vital Signs Temp Pulse Resp BP Pulse Ox O2 Del Method FiO2 02/14/24 11:37 18 98 50 02/14/24 08:30 88 126/75 02/14/24 08:25 90 18 97 Mechanical Ventilation 55 02/14/24 08:18 18 97 55 02/14/24 08:15 87 114/71 02/14/24 08:00 60 02/14/24 08:00 85 109/69 02/14/24 07:45 88 106/74 02/14/24 07:30 89 113/76 02/14/24 07:15 88 118/72 02/14/24 07:00 90 112/78 97 02/14/24 06:45 86 124/72 02/14/24 06:30 87 112/77 02/14/24 06:15 84 116/78 96 02/14/24 06:00 90 126/76 94 Mechanical Ventilation 60 02/14/24 06:00 90 02/14/24 05:45 92 97 02/14/24 05:30 94 97 02/14/24 05:15 95 113/72 95 02/14/24 05:10 99.7 F H 93 19 H 111/60 96 Mechanical Ventilation 60 02/14/24 05:00 94 122/72 02/14/24 04:45 91 113/71 95 02/14/24 04:30 89 110/68 95 02/14/24 04:15 90 112/72 02/14/24 04:05 18 96 60 02/14/24 04:00 99.7 F H 89 112/77 95 Mechanical Ventilation 60 02/14/24 03:45 90 119/73 02/14/24 03:30 93 121/71 02/14/24 03:15 89 120/74 96 02/14/24 03:00 93 127/74 02/14/24 02:51 94 106/58 02/14/24 02:45 91 128/84 95 02/14/24 02:30 99 117/64 02/14/24 02:15 98 115/70 02/14/24 02:00 101 H 117/64 02/14/24 02:00 18 96 60 02/14/24 01:45 103 H 113/72 94 02/14/24 01:39 100 F H 105 H 20 H 95/56 96 Mechanical Ventilation 60 02/14/24 01:30 105 H 116/69 02/14/24 01:15 106 H 105/65 02/14/24 01:00 106 H 110/69 93 02/14/24 00:45 112 H 132/77 02/14/24 00:30 116 H 116/92 90 02/14/24 00:15 112 H 122/75 Intake & Output/Weight 02/12/24 02/13/24 02/14/24 02/15/24 06:59 06:59 06:59 06:59 Intake Total 4089.061 / 4089.061 1148.968 / 1148.968 Output Total 1954 Balance 2134.061 / 2134.061 1148.968 / 1148.968 Weight 250 lb 13.416 oz Procedures Performed Laparoscopic cholecystectomy 02/12/2024 Diagnostic laparoscopy with drain placements 02/13/2024 Vitals Last Vital Signs Temp 99.7 F H 02/14/24 05:10 Pulse 88 02/14/24 08:30 Resp 18 02/14/24 11:37 BP 126/75 02/14/24 08:30 Pulse Ox 98 02/14/24 11:37 O2 Del Method Mechanical Ventilation 02/14/24 08:25 FiO2 50 02/14/24 11:37 TS Medications Medications Acetaminophen (Acetaminophen 650 Mg Supp) 650 mg UT Q6H PRN PRN Reason: FEVER Last Admin: 02/14/24 00:22 Dose: 650 mg Albuterol/Ipratropium (Ipratropium-Albuterol 3 Ml Neb) 3 ml INHALATION Q6H PRN PRN Reason: SHORTNESS OF BREATH Chlorhexidine Gluconate (Chlorhexidine Gluconate 4% Btl 118 Ml) 1 applic TOPICAL Q24H [facility] Last Admin: 02/14/24 05:15 Dose: 1 applic Enoxaparin Sodium (Enoxaparin 120 Mg/0.8 Ml Syringe) 110 mg SUBCUT Q12H [facility] Last Admin: 02/14/24 06:14 Dose: 110 mg Glucagon (Glucagon 1 Mg/Ml Kit 1 Ml) 1 mg IM ONCE PRN; Protocol PRN Reason: Adult Acute Hypoglycemia Nursing Prot. Hydromorphone HCl (Hydromorphone 1 Mg/Ml Inj 1 Ml) 1 mg IVP Q2H PRN PRN Reason: PAIN Norepinephrine Bitartrate (Levophed) 4 mg in 250 mls @ 0 mls/hr IV .Q0M [facility]; Protocol Last Titration: 02/14/24 07:30 Dose: 12 mcg/min, 45 mls/hr Sodium Chloride (Sodium Chloride 0.9%) 1,000 mls @ 125 mls/hr IV .Q8H [facility] Last Admin: 02/14/24 11:22 Dose: 125 mls/hr Micafungin Sodium 100 mg/ (Sodium Chloride) 100 mls @ 100 mls/hr IV Q24H [facility] Fentanyl (Sublimaze) 1,000 mcg in 100 mls @ 0 mls/hr IV .Q0M [facility]; Protocol Last Admin: 02/14/24 10:46 Dose: 125 mcg/hr, 12.5 mls/hr Propofol (Diprivan) 1,000 mg in 100 mls @ 0 mls/hr IV .Q0M [facility]; Protocol Last Admin: 02/14/24 04:53 Dose: 10 mcg/kg/min, 6.12 mls/hr Dextrose (D5w) 500 mls @ 0 mls/hr IV ONCE PRN; Protocol PRN Reason: Adult Acute Hypoglycemia Prot Dextrose (D10w) 125 mls @ 750 mls/hr IV PRN PRN; Protocol PRN Reason: Adult Acute Hypoglycemia Nursing Protocol Dextrose (D10w) 250 mls @ 1,000 mls/hr IV PRN PRN; Protocol PRN Reason: Adult Acute Hypoglycemia Nursing Protocol Insulin Human Regular (Myxredlin 100 Unit/100 Ml Bag) 100 unit in 100 mls @ 0 mls/hr IV PROTOCOL [facility]; Protocol Last Titration: 02/14/24 08:15 Dose: 4.2 unit/hr, 4.2 mls/hr Piperacillin Sod/Tazobactam (Sod 3.375 gm/ Sodium Chloride) 50 mls @ 12.5 mls/hr IV Q8H [facility] Last Admin: 02/14/24 11:20 Dose: 12.5 mls/hr Vancomycin HCl (Vancocin) 1,250 mg in 250 mls @ 166.667 mls/hr IV Q24H [facility] Amiodarone HCl/Dextrose (Nexterone) 360 mg in 200 mls @ 0 mls/hr IV .Q0M [facility]; Protocol Last Admin: 02/14/24 10:40 Dose: 1 mg/min, 33.33 mls/hr Ondansetron HCl (Ondansetron 2 Mg/Ml Sdv 2 Ml) 4 mg IVP Q6H PRN PRN Reason: vomiting, or N/V if npo Ondansetron HCl (Ondansetron 2 Mg/Ml Sdv 2 Ml) 4 mg IVP Q6H PRN PRN Reason: NAUSEA AND VOMITING Pantoprazole Sodium (Pantoprazole 40 Mg Sdv) 40 mg IVP Q12H [facility] Last Admin: 02/14/24 04:53 Dose: 40 mg Discontinued Medications Acetaminophen (Acetaminophen 325 Mg Tablet) 650 mg NG-TUBE Q6H PRN PRN Reason: FEVER Acetaminophen (Acetaminophen 325 Mg Tablet) 650 mg XX Q6H PRN PRN Reason: FEVER Albuterol Sulfate (Albuterol 2.5 Mg/3 Ml Neb) 2.5 mg INHALATION ONCE PRN PRN Reason: WHEEZING Amiodarone HCl (Amiodarone 50 Mg/Ml Sdv 3 Ml) 150 mg IVP ONCE ONE Stop: 02/14/24 10:18 Last Admin: 02/14/24 10:28 Dose: 150 mg Bumetanide (Bumetanide 0.25 Mg/Ml Sdv 4 Ml) 1 mg IVP ONCE ONE Stop: 02/14/24 08:45 Last Admin: 02/14/24 08:56 Dose: 1 mg Calcium Chloride (Calcium Chloride 10% Syr 10 Ml) Confirm Administered Dose 1 gm .ROUTE .ST-MED ONE Stop: 02/13/24 16:11 Dexamethasone (Dexamethasone 4 Mg/Ml Inj) Confirm Administered Dose 8 mg .ROUTE .[facility] ONE Stop: 02/13/24 14:53 Diltiazem HCl (Diltiazem 5 Mg/Ml Sdv 5 Ml) 15 mg IVP ONCE ONE Stop: 02/13/24 10:29 Last Admin: 02/13/24 10:53 Dose: Not Given Diltiazem HCl (Diltiazem 5 Mg/Ml Sdv 5 Ml) 5 mg IVP ONCE ONE Stop: 02/14/24 10:28 Last Admin: 02/14/24 10:39 Dose: 5 mg Enoxaparin Sodium (Enoxaparin 120 Mg/0.8 Ml Syringe) 110 mg SUBCUT Q12H [facility] Epinephrine HCl (Epinephrine 1 Mg/Ml Inj) Confirm Administered Dose 1 mg .ROUTE .[facility] ONE Stop: 02/13/24 14:36 Famotidine (Famotidine 20 Mg/2 Ml Inj) 20 mg IVP ONCE PRN PRN Reason: HEARTBURN Fentanyl (Fentanyl 50 Mcg/Ml Inj 2ml) Confirm Administered Dose 100 mcg .ROUTE .[facility] ONE Stop: 02/13/24 14:55 Fentanyl (Fentanyl 50 Mcg/Ml Inj 2ml) 50 mcg IVP Q10M PRN PRN Reason: Preop Pain Fentanyl (Fentanyl 50 Mcg/Ml Inj 2ml) 100 mcg IVP ONCE PRN PRN Reason: Per anesthesia for block Heparin Sodium (Porcine) (Heparin 5,000 Unit/Ml Inj 1 Ml) 5,000 unit SUBCUT Q8H [facility] Last Admin: 02/13/24 18:02 Dose: 5,000 unit Hydrocortisone Sodium Succinate (Hydrocortisone 100 Mg/2 Ml Sdv) 100 mg IVP Q12H [facility] Last Admin: 02/14/24 06:13 Dose: 100 mg Hydromorphone HCl (Hydromorphone 1 Mg/Ml Inj 1 Ml) 1 mg IVP ONCE ONE Stop: 02/13/24 10:14 Last Admin: 02/13/24 10:46 Dose: 1 mg Hydromorphone HCl (Hydromorphone 1 Mg/Ml Inj 1 Ml) 1 mg IVP ONCE ONE Stop: 02/13/24 12:09 Last Admin: 02/13/24 13:44 Dose: Not Given Piperacillin Sod/Tazobactam (Sod 3.375 gm/ Sodium Chloride) 50 mls @ 100 mls/hr IV ONCE ONE; Protocol Stop: 02/13/24 10:39 Last Infusion: 02/13/24 11:35 Dose: Infused Sodium Chloride (Sodium Chloride 0.9%) 1,000 mls @ 999 mls/hr IV .Q1H1M [facility] Stop: 02/13/24 12:15 Last Infusion: 02/13/24 18:18 Dose: Infused Sodium Chloride (Sodium Chloride 0.9%) 500 mls @ 999 mls/hr IV .Q31M ONE Stop: 02/13/24 11:25 Last Infusion: 02/13/24 18:18 Dose: Infused Albumin Human (Albumin) Confirm Administered Dose 12.5 gm in 250 mls @ as directed .ROUTE .[facility] ONE Stop: 02/13/24 14:36 Lidocaine HCl (Xylocaine) Confirm Administered Dose 10 mls @ as directed .ROUTE .[facility] ONE Stop: 02/13/24 14:54 Sodium Chloride (Sodium Chloride 0.9%) 1,000 mls @ 30 mls/hr IV .Q24H [facility] Stop: 02/14/24 15:14 Last Infusion: 02/13/24 18:57 Dose: 0 mls/hr Albumin Human (Albumin) Confirm Administered Dose 12.5 gm in 250 mls @ as directed .ROUTE .[facility] ONE Stop: 02/13/24 15:55 Sodium Bicarbonate 150 meq/ (Dextrose) 1,150 mls @ 150 mls/hr IV .Q7H40M ONE Stop: 02/14/24 01:02 Last Admin: 02/13/24 18:41 Dose: 150 mls/hr Vancomycin HCl / Sodium (Chloride) 250 mls @ 0 mls/hr [id number] PROTOCOL [facility]; Protocol Micafungin Sodium 150 mg/ (Sodium Chloride) 100 mls @ 100 mls/hr IV ONCE ONE Stop: 02/13/24 18:29 Last Infusion: 02/13/24 20:38 Dose: Infused Sodium Chloride (Sodium Chloride 0.9%) 1,000 mls @ 75 mls/hr IV .[id number] [facility] Piperacillin Sod/Tazobactam (Sod / Sodium Chloride) 50 mls @ 0 mls/hr [id number] CONT [facility]; Protocol Vancomycin HCl (Vancocin) 1,500 mg in 300 mls @ 200 mls/hr IV Q36H [facility] Last Infusion: 02/13/24 23:18 Dose: 0 mls/hr Iohexol (Iohexol 350 Mg/Ml 500 Ml Btl (Per Ml)) 0 ml IV ONCE ONE Stop: 02/13/24 11:41 Last Admin: 02/13/24 11:40 Dose: 100 ml Iohexol (Iohexol 350 Mg/Ml 500 Ml Btl (Per Ml)) 0 ml PO ONCE ONE Stop: 02/13/24 11:41 Last Admin: 02/13/24 11:41 Dose: 25 ml Iohexol (Iohexol 350 Mg/Ml 500 Ml Btl (Per Ml)) 0 ml IV ONCE ONE Stop: 02/13/24 14:43 Last Admin: 02/13/24 14:42 Dose: 55 ml Iohexol (Iohexol 350 Mg/Ml 500 Ml Btl (Per Ml)) 0 ml PO ONCE ONE Stop: 02/13/24 14:44 Last Admin: 02/13/24 14:43 Dose: 25 ml Ipratropium [place] (Ipratropium 0.5 Mg/2.5 Ml Neb) 0.5 mg INHALATION ONCE PRN PRN Reason: WHEEZING Lidocaine HCl (Lidocaine 1% Inj 20 Ml) 0.1 ml INTRADERMA PRN PRN PRN Reason: anesthetic prior to IV start Stop: 02/14/24 15:05 Lidocaine/Epinephrine (Lidocaine-Epi 2% Pf 1:200,000 20 Ml Sdv) Confirm Administered Dose 20 ml .ROUTE .STK-MED ONE Stop: 02/13/24 14:43 Lidocaine/Epinephrine (Lidocaine-Epi 2% Pf 1:200,000 20 Ml Sdv) 20 ml XX ONCE ONE Stop: 02/13/24 15:05 Last Admin: 02/13/24 15:48 Dose: 10 ml Metoclopramide HCl (Metoclopramide 5 Mg/Ml Sdv 2 Ml) 10 mg IVP ONCE PRN PRN Reason: N/V if zofran ineffective Midazolam HCl (Midazolam 1 Mg/Ml Inj 2 Ml) 2 mg IVP Q5M PRN PRN Reason: Preop Anxiety Midazolam HCl (Midazolam 1 Mg/Ml Inj 5 Ml) 5 mg IVP ONCE PRN PRN Reason: Per anesthesia for block Midazolam HCl (Midazolam 1 Mg/Ml Inj 5 Ml) Confirm Administered Dose 5 mg .ROUTE .STK-MED ONE Stop: 02/13/24 16:15 Neomycin/Polymyxin/Bacitracin (Mafcgdrs-Xgor-Lzclmitgnp Oint 28 Gm) Confirm Administered Dose 28 applic .ROUTE .STK-MED ONE Stop: 02/13/24 16:38 Neomycin/Polymyxin/Bacitracin (Xuzykcxm-Xazi-Hcnexlddhs Oint 28 Gm) 3 applic TOPICAL ONCE ONE Stop: 02/13/24 16:45 Last Admin: 02/13/24 16:44 Dose: 3 applic Ondansetron HCl (Ondansetron 2 Mg/Ml Sdv 2 Ml) 4 mg IVP ONCE ONE Stop: 02/13/24 10:14 Last Admin: 02/13/24 10:46 Dose: 4 mg Ondansetron HCl (Ondansetron 2 Mg/Ml Sdv 2 Ml) Confirm Administered Dose 4 mg .ROUTE .STK-MED ONE Stop: 02/13/24 14:53 Ondansetron HCl (Ondansetron 2 Mg/Ml Sdv 2 Ml) 4 mg IVP Q5M PRN PRN Reason: NAUSEA AND VOMITING Pantoprazole Sodium (Pantoprazole 40 Mg Sdv) 40 mg IVP BID IVELISSE Phenylephrine HCl (Phenylephrine 10 Mg/Ml Sdv 1 Ml) Confirm Administered Dose 10 mg .ROUTE .STK-MED ONE Stop: 02/13/24 15:02 Phenylephrine HCl (Phenylephrine 10 Mg/Ml Sdv 1 Ml) Confirm Administered Dose 20 mg .ROUTE .STK-MED ONE Stop: 02/13/24 15:55 Propofol (Propofol 10 Mg/Ml Sdv 20 Ml) Confirm Administered Dose 200 mg .ROUTE .STK-MED ONE Stop: 02/13/24 14:54 Rocuronium [place] (Rocuronium 10 Mg/Ml Inj 5ml) Confirm Administered Dose 50 mg .ROUTE .STK-MED ONE Stop: 02/13/24 14:53 Rocuronium [place] (Rocuronium 10 Mg/Ml Inj 5ml) Confirm Administered Dose 50 mg .ROUTE .STK-MED ONE Stop: 02/13/24 16:15 Scopolamine (Scopolamine 1.5 Patch) 1 patch TRANSDERMA ONCE PRN PRN Reason: Nausea/ Vomiting Prophylaxis Sodium Bicarbonate (Sodium Bicarbonate 4.2% 0.5 Meq/Ml Sdv 5ml) Confirm Administered Dose 2.5 meq .ROUTE .STK-MED ONE Stop: 02/13/24 15:48 Last Admin: 02/13/24 17:55 Dose: Not Given Sodium Bicarbonate (Sodium Bicarbonate 8.4% 1 Meq/Ml 50ml Syr) Confirm Administered Dose 50 meq .ROUTE .STK-MED ONE Stop: 02/13/24 15:51 Sodium Bicarbonate (Sodium Bicarbonate 8.4% 1 Meq/Ml 50ml Syr) Confirm Administ ered Dose 50 meq .ROUTE .STK-MED ONE Stop: 02/13/24 15:53 Succinylcholine Chloride (Succinylcholine 20 Mg/Ml Sdv 10ml) Confirm Administered Dose 200 mg .ROUTE .STK-MED ONE Stop: 02/13/24 14:53 Sugammadex Sodium (Sugammadex 200 Mg/2 Ml Sdv) Confirm Administered Dose 200 mg .ROUTE .STK-MED ONE Stop: 02/13/24 14:37 Vasopressin (Vasopressin 20 Unit/Ml Inj) Confirm Administered Dose 20 unit .ROUTE .STK-MED ONE Stop: 02/13/24 14:36 Allergies No Known Allergies Allergy (Verified 02/11/24 12:02) Home Medications diclofenac sodium 100 mg tablet,extended release 24 hr 100 mg PO BID 10/24/21 [History Confirmed 02/13/24] glipizide 5 mg tablet See Rx Instructions .Route .COMPLEX 10/24/21 [History Confirmed 02/13/24] lisinopril 5 mg tablet 5 mg PO DAILY 10/24/21 [History Confirmed 02/13/24] docusate sodium 100 mg capsule (Colace) 100 mg PO BID #14 caps 02/12/24 [Rx Confirmed 02/13/24] hydrocodone 7.5 mg-acetaminophen 325 mg tablet 1 tab PO Q6H PRN pain #20 tabs 02/12/24 [Rx Confirmed 02/13/24] polyethylene glycol 3350 17 gram/dose oral powder (Miralax) 17 g PO DAILY 7 days #119 grams 02/12/24 [Rx Confirmed 02/13/24] Discharge Plan Discharge Patient Disposition: Xfer Other Condition: Stable Prescriptions: Continued glipizide 5 mg tablet See Rx Instructions .ROUTE .COMPLEX Rx Instructions: Take 2 tablets by mouth in the morning and 1 tablet in the evening. lisinopril 5 mg tablet 5 mg PO DAILY diclofenac sodium 100 mg tablet extended release 24 hr 100 mg PO BID hydrocodone-acetaminophen 7.5-325 mg tablet 1 tab PO Q6H PRN (Reason: pain) Qty: 20 0RF docusate sodium [Colace] 100 mg capsule 100 mg PO BID Qty: 14 0RF polyethylene glycol 3350 [Miralax] 17 gram/dose powder 17 g PO DAILY 7 Days Qty: 119 0RF Discharge Orders: Discharge Order (Routine); Ordered 02/14/24 Ordered By: Davdi Irby Referrals: Karime Watts MD [Primary Care Provider] - 4-7 days David Irby DO [Physician] - 2 weeks Discharge Diet: As Directed Discharge Activity: Resume usual activity Patient Instructions: Opioid Safety Transfer Attestations Time Spent in Transfer Care: less than 30 min Quality Metrics Clinical Quality Measures [ No reported AMI, CVA or VTE this stay] Coding Level of Care Code Acute Code for Chg Fwd Diagnoses Septic shock A41.9; R65.21 Cardiomyopathy I42.9 Status post laparoscopic cholecystectomy Z90.49 Metabolic acidosis E87.20 CHRISTIANO (acute kidney injury) N17.9
[2024-02-14] MEDS: propofol 1,000 MG/100 ML INJ 9.19 MG IV (12:59)
--- NOTE | 2024-02-14 14:49 | PC.NURSE ---
Pt was discharged at 1145 on amio, levo, fentanyl, and propofol via air ambulance. Family was notified.
--- NOTE | 2024-02-14 17:28 | USCV_ITS ---
Isabel Lazo Age: 64 Gender: F : 1960 Exam Date: 02/14/2024 02:43 Ordering Phys: Edgar Dupree MD Technologist: ARIANNA Exam Location: [facility] [place] Indication: septic cardiomyopathy Patient is on vent in ICU- 11, s/p lapchole revision. Her abdomen has residual gas, so no SUBS. Her parasternal views are very limited. BP: 115 / 80 HR: 89 Rhythm: Sinus Technical Quality: Technically difficult study MEASUREMENTS (Male / Female) Normal Values 2D ECHO LV Diastolic Diameter PLAX 3.5 cm 4.2 - 5.9 / 3.9 - 5.3 cm IVS Diastolic Thickness 1.7 cm 0.6 - 1.0 / 0.6 - 0.9 cm IVS Systolic Thickness 2.1 cm LVPW Diastolic Thickness 1.4 cm 0.6 - 1.0 / 0.6 - 0.9 cm LVPW Systolic Thickness 1.8 cm LVOT Diameter 2.0 cm LV Ejection Fraction 2D Teich 55.0 % LV Ejection Fraction MOD 4C 61.5 % LV Ejection Fraction MOD 2C 56.6 % LV Ejection Fraction 2C AL 56.7 % LA Diameter 5.0 cm Aorta at Sinotubular Diameter 2.9 cm IVC Diameter 2.0 cm M-MODE LA Ao Ratio MM 1.0 AV Cusp Separation MM 2.5 cm DOPPLER AV Peak Velocity 155.0 cm/s LVOT Peak Velocity 120.0 cm/s AV Area Cont Eq vti 3.2 cm squared AV Area Cont Eq pk 2.4 cm squared MV Peak Velocity 99.0 cm/s MV Area PHT 2.6 cm squared Mitral E to A Ratio 0.8 TV Peak Velocity 222.0 cm/s TR Peak Velocity 235.0 cm/s TR Peak Gradient 22.1 mmHg TV Peak E Velocity 74.0 cm/s Right Atrial Pressure 3.0 mmHg Pulmonary Artery Systolic Pressu 25.1 mmHg FINDINGS Left Ventricle Normal left ventricular size, systolic function and wall thickness, with no regional wall motion abnormalities. Left ventricular ejection fraction is estimated at 60 %. Mildly increased left ventricular filling pressure. Right Ventricle The right ventricle is normal in size and function. Right Atrium The right atrium is normal in size. Left Atrium The left atrium is normal in size. Mitral Valve Moderately thickened mitral valve. Mild mitral annular calcification. Trace mitral valve regurgitation. Aortic Valve Moderate aortic valve calcification. Aortic valve sclerosis without stenosis. Trace aortic valve regurgitation. Tricuspid Valve Structurally normal tricuspid valve without significant stenosis or regurgitation. Pulmonary artery systolic pressure is normal. Pulmonic Valve Structurally normal pulmonic valve without significant stenosis. There is no pulmonic regurgitation. Pericardium Normal pericardium without effusion. Aorta Normal ascending aorta dimension. IVC The inferior vena cava appears normal. CONCLUSIONS Normal left ventricular size, systolic function and wall thickness, with no regional wall motion abnormalities. Left ventricular ejection fraction is estimated at 60 %. Mildly increased left ventricular filling pressure. Moderate aortic valve calcification. Aortic valve sclerosis without stenosis. Trace aortic valve regurgitation. There is no pericardial effusion. Right atrial pressure is around 5 mm of mercury. Edgar Beverly MD (Electronically Signed) Final Date: 14 February 2024 10:08 S
== END 2024-02-14 14:49 | disposition short-term general hospital (02) | DRG 853 ==
LOC: ER 14:00 → OR 14:32 → ICU 17:51
PROVIDERS: Family Medicine; Surgery; Admitting Provider Internal Medicine; Emergency Provider Emergency Medicine; PCP Family Medicine; Visit Provider Internal Medicine
PROC: 5A1935Z Respiratory Ventilation, Less than 24 Consecutive Hours (ICD-10-PCS; CPT 49000; principal; 2024-02-13 15:00)
DX: A41.9 Sepsis, unspecified organism (principal); J96.90 Respiratory failure, unspecified, unspecified whether with hypoxia or hypercapnia; R65.21 Severe sepsis with septic shock; N17.0 Acute kidney failure with tubular necrosis; K83.2 Perforation of bile duct; I42.8 Other cardiomyopathies; E87.20 Acidosis, unspecified; I95.9 Hypotension, unspecified; E11.65 Type 2 diabetes mellitus with hyperglycemia; I48.91 Unspecified atrial fibrillation; I87.8 Other specified disorders of veins; Z87.891 Personal history of nicotine dependence
CPT/HCPCS: 36416; 36600; 51702; 71045; 71275; 74176; 74177; 78226; 80048; 80051; 80053; 82330; 82803; 82805; 82962; 83605; 83690; 83735; 83880; 84100; 84145; 84484; 85007; 85025; 85378; 86140; 87040; 87070; 87205; 93005; 93306; 94002; 94003; 94799; 96361; 96365; 96366; 96367; 96372; 96374; 96375; 96376; 99285; 99291; 99292; A9537; J0171; J0282; J0283; J0330; J1100; J1170; J1644; J1650; J1720; J2248; J2250; J2371; J2405; J2470; J2543; J2704; J3010; J3370; J3490; J7030; J7040; J7070; P9045

== ENCOUNTER → 2024-04-11 11:00 | Outpatient (BNVA) | payer MEDICARE, OTHER, SELFPAY | PROVIDERS: PCP Family Medicine; Visit Provider Specialist | DX: M19.011 Primary osteoarthritis, right shoulder (principal); Z71.89 Other specified counseling | CPT/HCPCS: 20610; J1100; J2795; J3301 ==

== ENCOUNTER → 2024-07-18 09:16 | Outpatient (BNVA) | payer MEDICARE, OTHER, SELFPAY | PROVIDERS: PCP Family Medicine; Visit Provider Specialist | DX: M19.011 Primary osteoarthritis, right shoulder (principal) | CPT/HCPCS: 20610; J1100; J2795; J3301 ==

== ENCOUNTER 2024-07-29 13:39 | Outpatient (CLI) | payer MEDICARE, OTHER, SELFPAY ==
--- NOTE | 2024-07-29 13:41 | MM_ITS ---
WS: [id number] BILATERAL 3D TOMOSYNTHESIS DIGITAL SCREENING MAMMOGRAPHY WITH CAD CLINICAL INFORMATION: SCREEN HISTORY: Screening mammogram. No current complaints. COMPARISON: 06/18/2023 TECHNIQUE: Bilateral CC and MLO views. FINDINGS: Scattered fibroglandular densities bilaterally. No suspicious focal mass, asymmetry, calcifications, or architectural distortion. No evidence of malignancy. Few tiny incidental punctate calcifications. MM/MM scr tomosynthesis [id number] IMPRESSION: DENSITY: There are scattered areas of fibroglandular density. BI-RADS: 2 - Benign. FOLLOW UP: 1 Year Follow-up Recommend return to annual screening mammography.
--- NOTE | 2024-07-29 13:41 | XR_ITS ---
WS: [id number] SCREENING DEXA SCAN [employer] CLINICAL INFORMATION: ASYMPTOMATIC MENOPAUSAL STATE COMPARISON: None. FINDINGS: The L1-L4 bone mineral density measures 1.032 g/cm2. This corresponds to a T score score of -1.2 and Z score of -0.8. Left femoral neck bone mineral density measures 0.761 g/cm2. This corresponds to a T score of -2.0 and Z score of -1.6. Right femoral neck bone mineral density measures 0.787 g/cm2. This corresponds to a T score -1.8of and Z score of -1.4. Mean femoral neck bone mineral density measures 0.774 g/cm2. This corresponds to a T score of -1.9 and Z score of -1.5. XR/XR DEXA axial skeleton* [id number] IMPRESSION: Osteopenia lumbar spine. Osteopenia femoral necks. Patient's FRAX calculated 10 year probability for major osteoporotic fracture i s 12.6% and osteoporotic hip fracture is 2.6%.
== END 2024-07-29 13:40 | disposition home or self-care (01) ==
PROVIDERS: PCP Family Medicine; Visit Provider Family Medicine
DX: Z12.31 Encounter for screening mammogram for malignant neoplasm of breast (principal); Z78.0 Asymptomatic menopausal state; R92.323 Mammographic fibroglandular density, bilateral breasts; M85.89 Other specified disorders of bone density and structure, multiple sites
CPT/HCPCS: 77063; 77067; 77080